=== PATIENT | female | born 1980 | race Caucasian/White ===

== ENCOUNTER 2019-03-10 14:57 | Emergency (ER) | payer MEDICAID, SELFPAY ==
[2019-03-10 14:58] VITALS: BP 165/94; PULSE 100; RESP 14; TEMP 36.6; O2SAT 99; BMI 31.8
--- NOTE | 2019-03-10 15:15 | ED.VIS.GEN ---
History of Present Illness Chief Complaint: Dental Onset: Today Narrative: Worsening right upper dental pain this morning. States broke the tooth a week ago biting a walnut. 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 Currently is not using. Ibuprofen taken 7 AM this morning. Pain radiating up to the cheeks. No fevers. Hot and cold sensitivities. No difficulty swallowing. Reports currently with insurance, dentist that she has does not take it. Prior similar symptoms: Yes Past Medical History - Allergies and Home Meds Allergies/Adverse Reactions: Allergies amoxicillin [Amoxicillin] Allergy (Verified 03/10/19 15:00) Hives Penicillins Allergy (Verified 03/10/19 15:00) Swelling Primary Care Physician: Isaías Saldana MD [Primary Care Provider] - Smoking Status: Current some day smoker Review of Systems General: Denies: Chills, Fever, Sweats Eyes: Denies: Visual changes - bilaterally, Diplopia ENT: Denies: Rhinorrhea, Sore throat Cardiovascular: Denies: Chest pain, Palpitations Respiratory: Denies: Dyspnea, Cough, Dyspnea on exertion Gastrointestinal: Denies: Abdominal pain, Nausea, Vomiting, Diarrhea, Melena, Hematochezia Genitourinary: Denies: Dysuria, Hematuria, Frequency Musculoskeletal: Denies: Back pain, Extremity Pain Skin: Denies: Rash, Wounds Neurological: Denies: Headache, Weakness, Numbness Physical Exam Vital Signs/Narrative: Vital Signs Temp Pulse Resp BP Pulse Ox 03/10/19 14:58 97.8 F 100 14 165/94 H 99 Inital Vital Signs reviewed: Yes General: Well nourished - Miles an hour today 3, Well developed, No Acute Distress Head: Normocephalic, Atraumatic Eyes: Perrl, EOMI ENT: Moist mucous membranes, No rhinorrhea, - - Dental decay tooth #7 and 8 with tenderness, no fluctuance, no erythema or bleeding. Airway patent. No trismus. Neck: Supple, Nontender Cardiovascular: Regular rate, Regular rhythm, No murmurs Respiratory: No distress, CTA bilaterally, Chest nontender Abdomen: Soft, Nontender, Nondistended, Normal bowel sounds Back: Nontender, Normal Inspection Extremities: Nontender, No edema Skin: Normal color, No rash Neurological: Alert, Oriented x3, Cranial nerves II-XII grossly intact, Normal Strength, Normal Sensation Psychological: Normal affect, Normal Mood Diagnostic/Tx/Re-eval - Medical Decision Making Patient nontoxic, vital signs stable. exam with dental caries causing pain. There is no abscess. Allergy to penicillin, will start clindamycin and Motrin 600 every 6 hours. She is given a dental list for follow-up. All questions were answered. ED Disposition - Plan for ED Patient: Disposition: Home or Assisted Living Diagnosis: Dental caries, Dentalgia Instructions: Dental Cavity, Dental Pain Prescriptions: Clindamycin [Cleocin] 450 mg PO TID #90 capsule Ibuprofen [Motrin] 600 mg PO Q6H PRN PRN #20 tablet PRN Reason: Pain Score 1-10/10 Referrals: Isaías Saldana MD [Primary Care Provider] - Additional Instructions: Call from dental list for follow up for definitive care.
[2019-03-10] MEDS: Ibuprofen 600 MG Tablet PO (15:20)
[2019-03-10] MEDS: Clindamycin HCl 150 MG Capsule 450 MG PO (15:20)
== END 2019-03-10 15:40 | disposition home or self-care (01) ==
LOC: ED 15:24
PROVIDERS: Emergency Provider Emergency Medicine; Family Provider Family Medicine; PCP Family Medicine
DX: K08.89 Other specified disorders of teeth and supporting structures (principal); K02.9 Dental caries, unspecified; F17.200 Nicotine dependence, unspecified, uncomplicated
CPT/HCPCS: 99283

== ENCOUNTER 2020-03-02 23:23 | Emergency (ER) | payer MEDICAID, SELFPAY ==
[2020-03-02 23:24] VITALS: BP 161/98; PULSE 117; RESP 15; TEMP 36.2; O2SAT 100; BMI 33.5
--- NOTE | 2020-03-02 23:39 | ED.DCSUM_ITS ---
History of Present Illness Chief Complaint: Vag Bleeding Informant: Patient Onset: Days Current Severity: Moderate Maximum Severity: Moderate Narrative: Patient presents with vaginal bleeding and believes that she has had a recent miscarriage. She states 2 days ago she started bleeding very heavy and passed large clots. Yesterday she was able to wear normal tampon but tonight had increased bleeding and states she is blood through 4 tampons in the last 4 hours. She did take a home test 2 days ago that was positive. Patient states her last several periods have been abnormal but she did have a period last month. She states she has not seen an DEPUTY CLERK OF COURT in quite some time. She does know that she has required the RhoGam shot in the past. - Past Medical History (1) Kidney stones Status: Chronic (2) Anxiety and depression Status: Chronic Past Medical History - Allergies and Home Meds Allergies/Adverse Reactions: Allergies amoxicillin [Amoxicillin] Allergy (Verified 03/02/20 23:26) Hives Penicillins Allergy (Verified 03/02/20 23:26) Swelling Primary Care Physician: Isaías Saldana MD [Primary Care Provider] - Prior records reviewed: Yes Smoking Status: Current every day smoker Review of Systems General: Denies: Chills, Fever Eyes: Denies: Visual changes - bilaterally ENT: Denies: Bilateral ear pain Cardiovascular: Denies: Chest pain Respiratory: Denies: Dyspnea, Cough Gastrointestinal: Reports: Abdominal pain. Denies: Nausea, Vomiting, Diarrhea Musculoskeletal: Denies: Extremity Pain Skin: Denies: Rash Neurological: Denies: Headache Hematologic: Denies: Easy bruising, Easy bleeding Allergy: Denies: Uticaria Physical Exam Vital Signs/Narrative: Vital Signs Temp Pulse Resp BP Pulse Ox 03/02/20 23:24 97.2 F L 117 H 15 161/98 H 100 Inital Vital Signs reviewed: Yes General: Well nourished, Well developed Head: Normocephalic ENT: Moist mucous membranes Neck: Supple Cardiovascular: Regular rate, Regular rhythm Respiratory: No distress, CTA bilaterally Abdomen: Soft, Nontender Extremities: Nontender Skin: Normal color Neurological: Alert, Oriented x3 Psychological: Normal affect Diagnostic/Tx/Re-eval Laboratory Results 03/02/20 03/02/20 03/02/20 23:53 23:53 23:53 WBC 12.9 H RBC 3.61 L Hgb 10.3 L Hct 32.2 L MCV 89.2 MCH 28.5 MCHC 32.0 RDW Std Deviation 38.3 RDW Coeff of Bria 11.9 Plt Count 298 MPV 9.2 Immature Gran % (Auto) 0.900 Neut % (Auto) 71.8 H Lymph % (Auto) 18.4 L [place] % (Auto) 7.2 Eos % (Auto) 1.3 Baso % (Auto) 0.4 Absolute Neuts (auto) 9.3 H Absolute Lymphs (auto) 2.38 Nucleated RBC % 0 Sodium Potassium Chloride Carbon Dioxide Anion Gap BUN Creatinine Estim Creat Clear Calc Est GFR (MDRD) Af Amer Est GFR (MDRD) Non-Af BUN/Creatinine Ratio Glucose Calcium HCG, Quant 410 H Blood Type A NEGATIVE 03/02/20 23:53 WBC RBC Hgb Hct MCV MCH MCHC RDW Std Deviation RDW Coeff of Bria Plt Count MPV Immature Gran % (Auto) Neut % (Auto) Lymph % (Auto) [place] % (Auto) Eos % (Auto) Baso % (Auto) Absolute Neuts (auto) Absolute Lymphs (auto) Nucleated RBC % Sodium 139 Potassium 3.5 Chloride 105 Carbon Dioxide 28.0 Anion Gap 6 BUN 11 Creatinine 0.64 Estim Creat Clear Calc 98.59 Est GFR (MDRD) Af Amer 134 Est GFR (MDRD) Non-Af 110 BUN/Creatinine Ratio 17.2 Glucose 103 Calcium 8.5 HCG, Quant Blood Type - Medical Decision Making Exam was performed at bedside. Patient had large clots in the vaginal vault with heavy bleeding. These were removed with ring forceps. Following this bimanual examination revealed cervix to be fingertip open. Following extraction of clots patient's bleeding has significantly reduced. She has been hemodynamically stable in the emergency department. She did receive a dose of RhoGam and will be instructed to follow-up with Dr. Granado, on-call for no doc DEPUTY CLERK OF COURT. She is given return instructions as well. ED Disposition - Plan for ED Patient: Disposition: Home or Assisted Living Diagnosis: Miscarriage Instructions: ED Possible Miscarriage Threatened Referrals: Zahida Granado MD [STAFF PHYSICIAN] - As soon as possible
[2020-03-02] MEDS: 0.9% Normal Saline 1,000 ML 1000 ML IV (23:59)
[2020-03-03 00:01] LABS: Absolute Lymphocyte Count 2.38 X10^3/uL (0.83-4.51); Absolute Neutrophil Count 9.3 X10^3/uL (2.0-7.7); Basophil# 0.05 X10^3/uL; Basophil% 0.4 % (0-1); Eosinophil# 0.17 X10^3/uL; Eosinophils% 1.3 % (0-5); Hematocrit 32.2 % (37-47); Hemoglobin 10.3 g/dL (12.0-15.0); Lymphocyte # 2.38 X10^3/ul (4.0); Lymphocyte % 18.4 % (19-41); Mean Corpuscular Hgb 28.5 pg (27.0-32.0); Mean Corpuscular Volume 89.2 fL (81-99); Mean Platelet Vol. 9.2 fl (6.2-12.0); Monocyte# 0.93 X10^3/uL; Monocyte% 7.2 % (0-10); NRBC Flagged by Analyzer 0 % (0-5); Neutrophil # 9.26 X10^3/uL (2.7-7.7); Neutrophil % 71.8 % (47-70); Platelet Count 298 K/mm3 (150-450); RBC Distribution Width CV 11.9 % (11.6-14.6); RBC Distribution Width SD 38.3 fl (35.1-43.9); Red Blood Count 3.61 M/mm3 (4.2-5.4); White Blood Count 12.9 K/mm3 (4.4-11.0)
[2020-03-03 00:19] LABS: hCG Titer Quant., Serum 410 mIU/mL (1-3)
[2020-03-03 00:21] LABS: Anion Gap 6 (5-15); BUN 11 mg/dL (7-18); BUN/Creat Ratio 17.2 RATIO (10-20); Calcium,Total 8.5 mg/dL (8.5-10.1); Chloride 105 mmol/L (98-107); Creatinine, Serum 0.64 mg/dL (0.55-1.02); EST Glomerular Filtration Rate 110 mL/min (>60); Est Glom Filt Rate - Afr Amer 134 mL/min (>60); Estimated Creatinine Clearance 98.59 ml/min; Glucose 103 mg/dL (74-106); Potassium 3.5 mmol/L (3.5-5.1); Sodium Level 139 mmol/L (136-145)
[2020-03-03 02:54] VITALS: BP 116/79; PULSE 97; RESP 26; O2SAT 98
== END 2020-03-03 02:54 | disposition home or self-care (01) ==
PROVIDERS: Emergency Provider Emergency Medicine; PCP Family Medicine
DX: O03.9 Complete or unspecified spontaneous abortion without complication (principal); F17.200 Nicotine dependence, unspecified, uncomplicated
CPT/HCPCS: 80048; 84702; 85025; 86900; 86901; 90384; 96360; 96372; 99285; J7030; J2790

== ENCOUNTER 2020-03-07 18:00 | Emergency (ER) | payer MEDICAID, SELFPAY ==
[2020-03-07 18:01] VITALS: BP 155/95; PULSE 111; RESP 18; TEMP 36.3; O2SAT 99; BMI 31.8
--- NOTE | 2020-03-07 18:31 | CT_ITS ---
STUDY: CTA CHEST REASON FOR EXAM: Female, 39 years old. MISCARRIAGE 4 DAYS AGO, CLOTS REMOVED IN ED, TODAY BACK PAIN RIGHT SIDE, SOB, PAIN WITH INHALATION RADIATION DOSAGE (If Supplied By Facility): CTDIvol = ( 15.81 ) mGy, DLP = ( 478.80 ) mGycm TECHNIQUE: The examination was performed with the intravenous administration of IV 100mL Isovue-370. Post-processing of the angiographic images was performed, with multiplanar reformation and 3D reconstruction. Individualized dose optimization techniques were used for this CT. COMPARISON: None. FINDINGS: The heart and pericardium are normal. The aorta is normal in caliber. No aneurysm or dissection. There is no mediastinal mass or adenopathy. There is no hilar or axillary adenopathy. There is no evidence of pulmonary embolus. Small right pleural effusion. Airspace disease is noted in the right upper and right lower lobes. In the left lung is clear. Visualized abdomen is unremarkable. There is no osseous abnormality. CT/CTA Chest W/WO Contrast IMPRESSION: 1. No demonstrated pulmonary embolism or arterial dissection. 2. Right upper and lower lobe pneumonia. 3. Small right pleural effusion. Electronically Signed: Rebekah Boateng MD at 19:58 EDT Tel , Service support ,
--- NOTE | 2020-03-07 18:31 | EKG12_ITS ---
Test Reason : DYSRYTHMIA Blood Pressure : / mmHG Vent. Rate : 096 BPM Atrial Rate : 096 BPM P-R Int : 128 ms QRS Dur : 092 ms QT Int : 350 ms P-R-T Axes : 040 076 048 degrees QTc Int : 442 ms Normal sinus rhythm Normal ECG Confirmed by IRVING VANCE, PHILLY ([id number]), editor trade journal CHRISTY SWEENEY ([id number]) on 03/09/2020 10:30:17 AM Referred By: QUINTEN Confirmed By:PHILLY VILLATORO MD
[2020-03-07] MEDS: Aspirin 81 MG TAB.CHEW 324 MG PO (18:43)
--- NOTE | 2020-03-07 19:17 | ED.DCSUM_ITS ---
History of Present Illness Chief Complaint: Back Informant: Patient Narrative: 39-year-old female presenting with acute onset right upper back pain and shortness of breath which occurred about 3 PM when she woke up from a nap. She states it feels like a muscle spasm however she has not done anything to injure herself. Patient was recently seen for miscarriage in the ED. She states that her abdomen is not hurting. He has minimal vaginal clots. He has no pelvic pain. She states that the pain is worse with deep inspiration. She denies any other medical history. - Past Medical History (1) Anxiety and depression Status: Chronic (2) Kidney stones Status: Chronic Past Medical History - Allergies and Home Meds Allergies/Adverse Reactions: Allergies amoxicillin [Amoxicillin] Allergy (Verified 03/02/20 23:26) Hives Penicillins Allergy (Verified 03/02/20 23:26) Swelling Primary Care Physician: Isaías Saldana MD [Primary Care Provider] - Past Medical History: - - Reviewed in problem list Surgical History: noncontributory Lives: With Family Smoking Status: Current every day smoker Alcohol: None Drugs: None Review of Systems General: Denies: Chills, Fever, Sweats Eyes: Denies: Visual changes - bilaterally, Diplopia ENT: Denies: Rhinorrhea, Sore throat Cardiovascular: Reports: Chest pain - Right posterior rib pain, Heart racing Respiratory: Reports: Dyspnea, Dyspnea on exertion Gastrointestinal: Denies: Abdominal pain, Nausea, Vomiting Genitourinary: Reports: Dysuria, Hematuria Musculoskeletal: Denies: Myalgias, Arthralgias Skin: Denies: Rash, Abscess Physical Exam Vital Signs/Narrative: Vital Signs Temp Pulse Resp BP Pulse Ox 03/07/20 18:01 97.4 F L 111 H 18 155/95 H 99 General: Well nourished, No Acute Distress Head: Normocephalic, Atraumatic Eyes: Perrl, EOMI ENT: Moist mucous membranes, No rhinorrhea Cardiovascular: Regular rhythm, Tachycardia Respiratory: No distress, CTA bilaterally, Chest nontender. Negative for: Chest tenderness Abdomen: Soft, Nontender, Nondistended Extremities: Nontender, No edema. Negative for: Calf Tenderness Skin: Normal color, No rash Neurological: Alert, Oriented x3 Psychological: Normal affect, Normal Mood Diagnostic/Tx/Re-eval Clinical Impression(s) from Imaging Studies Chest CTA 03/07/20 18:31 IMPRESSION: 1. No demonstrated pulmonary embolism or arterial dissection. 2. Right upper and lower lobe pneumonia. 3. Small right pleural effusion. Electronically Signed: Rebekah Boateng MD at 19:58 EDT Tel , Service support , Laboratory Data 03/07/20 03/07/20 19:00 19:00 WBC 20.1 H RBC 2.98 L Hgb 8.4 L Hct 26.1 L MCV 87.6 MCH 28.2 MCHC 32.2 RDW Std Deviation 38.7 RDW Coeff of Bria 12.0 Plt Count 406 MPV 9.0 Immature Gran % (Auto) 0.600 Neut % (Auto) 86.2 H Lymph % (Auto) 6.8 L [place] % (Auto) 5.5 Eos % (Auto) 0.6 Baso % (Auto) 0.3 Absolute Neuts (auto) 17.3 H Absolute Lymphs (auto) 1.37 Nucleated RBC % 0 Sodium 139 Potassium 3.6 Chloride 107 Carbon Dioxide 28.0 Anion Gap 4 L BUN 17 Creatinine 0.67 Estim Creat Clear Calc 94.18 Est GFR (MDRD) Af Amer 126 Est GFR (MDRD) Non-Af 105 BUN/Creatinine Ratio 25.4 H Glucose 119 H Calcium 8.5 Troponin I < 0.015 - Rhythm Strip Rhythm Strip: Sinus Rhythm Rate: 128 - EKG Initial EKG Interpretation: Sinus Rhythm, No Acute Injury Pattern - Medical Decision Making 39-year-old female presenting with acute onset right-sided upper back pain which started after she woke up from her nap at around 3 today. She states it feels like a muscle spasm. He states he might have had a couple of mild coughs earlier. She is not had a fever. She does states that she feels short of breath sometimes but it usually when the muscle spasming in her back. She has no cardiac history. Given that she recently miscarried I did have concern for PE. Patient had cardiac work-up which showed normal EKG sinus rhythm without ischemic changes. Troponin is negative. Lab work is remarkable for a leukocytosis of 20,000 which was previously 12,000 on her last visit. On reevaluation of the patient's vital signs she was a little tachycardic on arrival however her EKG shows ventricular rate of 96. After her CTA was performed which identified upper and lower lobe pneumonia as well as a right lower lobe pleural effusion which is small she was breathing at about 30 respirations per minute. While discussing her findings I did have her sit and relax for 30 seconds and her respiratory rate dropped to 15. Her heart rate dropped to 95. She feels that she only has these abnormalities in her vitals because she has a muscle spasm in her back. When she relaxes her vital signs are normal. I did discuss with the patient that it might be better for her to be admitted for IV antibiotics and monitoring however she states she absolutely cannot stay because she has to take care of her children. I discussed this with Dr. Judd who is on-call for her PCP Isaías Saldana in order to arrange close follow-up. After discussion we determined he would place the patient on doxycycline. We will send a respiratory panel as well as a Covid swab. Patient will quarantine at home. I also discussed with her that if she gets severe shortness of breath or chest pain or starts becoming more ill that she should return immediately to the emergency room. She acknowledged understanding of this. She requested a muscle relaxer for the spasming in her back and she was discharged home with doxycycline and cyclobenzaprine. Impression: 1. Right upper and lower lobe pneumonia 2. Right pleural effusion 3. Leukocytosis ED Disposition - Plan for ED Patient: Disposition: Home or Assisted Living Instructions: Treating Pneumonia Prescriptions: Cyclobenzaprine HCl 10 mg PO TID PRN PRN #21 tab PRN Reason: pain Prescription Printed Doxycycline 100 mg PO BID #20 cap Prescription Printed Referrals: Isaías Saldana MD [Primary Care Provider] -
[2020-03-07 19:19] LABS: Absolute Lymphocyte Count 1.37 X10^3/uL (0.83-4.51); Absolute Neutrophil Count 17.3 X10^3/uL (2.0-7.7); Basophil# 0.06 X10^3/uL; Basophil% 0.3 % (0-1); Eosinophil# 0.12 X10^3/uL; Eosinophils% 0.6 % (0-5); Hematocrit 26.1 % (37-47); Hemoglobin 8.4 g/dL (12.0-15.0); Lymphocyte # 1.37 X10^3/ul (4.0); Lymphocyte % 6.8 % (19-41); Mean Corp Hgb Conc 32.2 g/dL (32-36); Mean Corpuscular Hgb 28.2 pg (27.0-32.0); Mean Corpuscular Volume 87.6 fL (81-99); Monocyte% 5.5 % (0-10); NRBC Flagged by Analyzer 0 % (0-5); Neutrophil # 17.28 X10^3/uL (2.7-7.7); Neutrophil % 86.2 % (47-70); Platelet Count 406 K/mm3 (150-450); RBC Distribution Width SD 38.7 fl (35.1-43.9); Red Blood Count 2.98 M/mm3 (4.2-5.4); White Blood Count 20.1 K/mm3 (4.4-11.0)
[2020-03-07] MEDS: Ondansetron 4 MG/2 ML Vial IV (19:38)
[2020-03-07 19:39] LABS: Anion Gap 4 (5-15); BUN 17 mg/dL (7-18); BUN/Creat Ratio 25.4 RATIO (10-20); Calcium,Total 8.5 mg/dL (8.5-10.1); Chloride 107 mmol/L (98-107); Creatinine, Serum 0.67 mg/dL (0.55-1.02); EST Glomerular Filtration Rate 105 mL/min (>60); Est Glom Filt Rate - Afr Amer 126 mL/min (>60); Estimated Creatinine Clearance 94.18 ml/min; Glucose 119 mg/dL (74-106); Potassium 3.6 mmol/L (3.5-5.1); Sodium Level 139 mmol/L (136-145)
[2020-03-07] MEDS: Morphine 4 MG/ML Syringe IV (19:39)
[2020-03-07 19:59] VITALS: BP 119/70; PULSE 94; RESP 30; O2SAT 99
[2020-03-07] MEDS: Doxycycline 100 MG CAPSULE PO (20:53)
[2020-03-07 21:03] VITALS: BP 118/56; PULSE 102; RESP 31; O2SAT 99
[2020-03-07] MEDS: Orphenadrine 100 MG Tablet PO (21:06)
== END 2020-03-07 21:07 | disposition home or self-care (01) ==
PROVIDERS: Emergency Provider Student in an Organized Health Care Education/Training Program; PCP Family Medicine
DX: J18.9 Pneumonia, unspecified organism (principal); J90 Pleural effusion, not elsewhere classified; D72.829 Elevated white blood cell count, unspecified
CPT/HCPCS: 71275; 80048; 84484; 85025; 87633; 87635; 93005; 96374; 96375; 99284; Q9967; A4216; J2405; U0003

== ENCOUNTER 2020-03-08 11:36 | Inpatient (IN) | payer MEDICAID, SELFPAY ==
[2020-03-07 18:01] VITALS: BMI 31.8
[2020-03-08] VITALS (9 sets, daily range): BP systolic 105–166; BP diastolic 39–72; PULSE 100–127; RESP 18–26; TEMP 36.8–37.7; O2SAT 95–99; BMI 31.8; BMI 33.6; BMI 33.5
--- NOTE | 2020-03-08 12:40 | RAD_ITS ---
STUDY: X-RAY CHEST REASON FOR EXAM: Female, 39 years old. BACK PAIN, INCREASING PAIN -- DIAGNOSED WITH PNEUMONIA YESTERDAY TECHNIQUE: Single AP portable view of the chest. COMPARISON: Comparison is made with prior examination dated 05/24/2015. FINDINGS: EKG electrodes are seen. Patchy bibasilar infiltrates more prominent on the right side with blunting of the right costophrenic angle. Normal size heart. Normal mediastinum and duke. Normal visualized pulmonary arteries. Normal visualized aortic arch and descending thoracic aorta. Normal visualized thoracic spine. Normal visualized ribs, clavicles, and shoulders. There is no demonstrated abnormality of the visualized soft tissue structures of the upper abdomen. RAD/Chest 1 View (Portable) IMPRESSION: Patchy bibasilar infiltrates more prominent on the right side. There is blunting of the right costophrenic angle. Electronically Signed: Crow Mane, at 13:52 EDT , Service support ,
--- NOTE | 2020-03-08 12:40 | EKG12_ITS ---
Test Reason : Blood Pressure : / mmHG Vent. Rate : 107 BPM Atrial Rate : 107 BPM P-R Int : 126 ms QRS Dur : 094 ms QT Int : 328 ms P-R-T Axes : 034 080 045 degrees QTc Int : 437 ms Sinus tachycardia Otherwise normal ECG Confirmed by IRVING VANCE, PHILLY ([id number]), desk editor CHRISTY SWEENEY ([id number]) on 03/10/2020 1:51:26 PM Referred By: GUI/ANAHY Confirmed By:PHILLY VILLATORO MD
[2020-03-08 12:47] LABS: Absolute Lymphocyte Count 1.51 X10^3/uL (0.83-4.51); Absolute Neutrophil Count 20.3 X10^3/uL (2.0-7.7); Basophil# 0.07 X10^3/uL; Basophil% 0.3 % (0-1); Eosinophil# 0.15 X10^3/uL; Eosinophils% 0.6 % (0-5); Hemoglobin 8.3 g/dL (12.0-15.0); Lymphocyte # 1.51 X10^3/ul (4.0); Lymphocyte % 6.5 % (19-41); Mean Corp Hgb Conc 31.9 g/dL (32-36); Mean Corpuscular Hgb 28.5 pg (27.0-32.0); Mean Corpuscular Volume 89.3 fL (81-99); Mean Platelet Vol. 8.9 fl (6.2-12.0); Monocyte# 1.08 X10^3/uL; Monocyte% 4.6 % (0-10); NRBC Flagged by Analyzer 0 % (0-5); Neutrophil # 20.31 X10^3/uL (2.7-7.7); Neutrophil % 86.9 % (47-70); POSITIVE DIFFERENTIAL YES; Platelet Count 402 K/mm3 (150-450); RBC Distribution Width CV 12.1 % (11.6-14.6); RBC Distribution Width SD 39.1 fl (35.1-43.9); Red Blood Count 2.91 M/mm3 (4.2-5.4); White Blood Count 23.4 K/mm3 (4.4-11.0)
[2020-03-08 12:48] LABS: Differential Indicated SCAN CRITERIA MET
--- NOTE | 2020-03-08 12:53 | ED.DCSUM_ITS ---
History of Present Illness Chief Complaint: Back Informant: Patient Onset: Days Context: Gradual Onset Timing: Continuous Narrative: Patient is a 39-year-old female with history of anxiety and recent diagnosis of by lobar pneumonia presenting with worsening back pain. Patient was seen in the ER yesterday where she was having back spasms. She is ultimately found to have multilobar infiltrates and a small pleural effusion. She was diagnosed with pneumonia as she also has significant leukocytosis. She was offered but declined stating that she had to take care of her children at home. She was discharged home on antibiotics, doxycycline, and Flexeril. She last had the Flexeril at 8 AM. She states she is having worsening back pain and the spasms are just not letting up. Because of that she feels like she cannot breathe. She notes it is making her anxiety significantly worse. Patient states that she get her pain under control and the spasm under control she would like to be discharged home still. She continues have a mild cough. Patient negative CTA study yesterday. She was tested for Covid at that time which is still pending. She denies any swelling of her legs. She has some mild abdominal pain but states it is because she feels like her body spasming all over. Past Medical History - Allergies and Home Meds Allergies/Adverse Reactions: Allergies amoxicillin [Amoxicillin] Allergy (Verified 03/08/20 11:41) Hives Penicillins Allergy (Verified 03/08/20 11:41) Swelling Past Medical History: - - anxiety Surgical History: noncontributory Lives: With Family Smoking Status: Current every day smoker - Family History Maternal Family History: Reports: No pertinent history Paternal Family History: Reports: No pertinent history Review of Systems General: Reports: Malaise. Denies: Chills, Fever, Sweats Eyes: Denies: Visual changes - bilaterally, Diplopia ENT: Denies: Rhinorrhea, Sore throat Cardiovascular: Reports: Chest pain. Denies: Palpitations Respiratory: Reports: Dyspnea, Cough. Denies: Dyspnea on exertion Gastrointestinal: Reports: Abdominal pain. Denies: Nausea, Vomiting, Diarrhea, Melena, Hematochezia Genitourinary: Denies: Dysuria, Hematuria, Frequency Musculoskeletal: Reports: Myalgias, Back pain. Denies: Extremity Pain Skin: Denies: Rash, Wounds Neurological: Denies: Headache, Weakness, Numbness Psych: Reports: Anxiety Physical Exam Vital Signs/Narrative: Vital Signs Temp Pulse Resp BP Pulse Ox 03/08/20 12:24 98.2 F 103 H 26 H 166/71 H 98 03/08/20 11:38 98.2 F 127 H 20 H 135/39 H 95 Inital Vital Signs reviewed: Yes General: Well nourished, Well developed, Acute Distress - very anxious and tearful Head: Normocephalic, Atraumatic Eyes: Perrl, EOMI ENT: Moist mucous membranes, No rhinorrhea Neck: Supple, Nontender, No JVD Cardiovascular: Regular rhythm, No murmurs, Tachycardia Respiratory: CTA bilaterally, Chest nontender, - - Patient is tachypneic but I suspect it is more from her anxiety, does calm down well I am speaking with her Abdomen: Soft, Nontender, Nondistended, Normal bowel sounds. Negative for: Guarding, Rebound tenderness Back: Normal Inspection, - - Tenderness palpation of the right lower thoracic paraspinal area. Negative for: Spinal tenderness Extremities: Nontender, No edema Skin: Normal color, No rash Neurological: Alert, Oriented x3, Cranial nerves II-XII grossly intact, Normal Strength, Normal Sensation Psychological: Normal Mood, Tearful, Agitated Diagnostic/Tx/Re-eval Chest X-Ray - ED: 1 View, Read by ED Physician, Read by Radiologist, Right Infiltrate, Left Infiltrate, Right Effusion Clinical Impression(s) from Imaging Studies Chest X-Ray 03/08/20 12:40 IMPRESSION: Patchy bibasilar infiltrates more prominent on the right side. There is blunting of the right costophrenic angle. Electronically Signed: Crow Mane, at 13:52 EDT , Service support , Laboratory Data 03/08/20 03/08/20 03/08/20 12:20 12:20 12:20 WBC 23.4 H RBC 2.91 L Hgb 8.3 L Hct 26.0 L MCV 89.3 MCH 28.5 MCHC 31.9 L RDW Std Deviation 39.1 RDW Coeff of Bria 12.1 Plt Count 402 MPV 8.9 Immature Gran % (Auto) 1.100 H Neut % (Auto) 86.9 H Lymph % (Auto) 6.5 L [place] % (Auto) 4.6 Eos % (Auto) 0.6 Baso % (Auto) 0.3 Absolute Neuts (auto) 20.3 H Absolute Lymphs (auto) 1.51 Nucleated RBC % 0 Differential Comment SCANNED Platelet Estimate ADEQUATE Hypochromasia 1+ Sodium 138 Potassium 3.6 Chloride 104 Carbon Dioxide 27.0 Anion Gap 7 BUN 14 Creatinine 0.60 Estim Creat Clear Calc 105.16 Est GFR (MDRD) Af Amer 143 Est GFR (MDRD) Non-Af 118 BUN/Creatinine Ratio 23.2 H Glucose 113 H Lactic Acid 1.4 Calcium 8.6 Total Creatine Kinase Troponin I 0.038 03/08/20 12:20 WBC RBC Hgb Hct MCV MCH MCHC RDW Std Deviation RDW Coeff of Bria Plt Count MPV Immature Gran % (Auto) Neut % (Auto) Lymph % (Auto) [place] % (Auto) Eos % (Auto) Baso % (Auto) Absolute Neuts (auto) Absolute Lymphs (auto) Nucleated RBC % Differential Comment Platelet Estimate Hypochromasia Sodium Potassium Chloride Carbon Dioxide Anion Gap BUN Creatinine Estim Creat Clear Calc Est GFR (MDRD) Af Amer Est GFR (MDRD) Non-Af BUN/Creatinine Ratio Glucose Lactic Acid Calcium Total Creatine Kinase 45 Troponin I - Rhythm Strip Rhythm Strip: Sinus Tach Rate: 107 Ectopy: None - EKG Initial EKG Interpretation: Sinus Tachycardia, - - Tachycardia at a rate of 107 Normal intervals Normal axis Normal ST segments Tachycardia compared to prior EKG on 05/24/2015 - Medical Decision Making Patient is evaluated for worsening shortness of breath and pain. Patient was seen in the ER for back pain and diagnosed with multilobar pneumonia yesterday. Her Covid test is still pending. Patient was offered admission at that time given her pneumonia, tachycardia and pain however declined saying she did take care of her children at home. Patient came back today because she is having worsening pain and shortness of breath. X-ray repeated today which shows patchy bilateral infiltrates as well as a right pleural effusion. Patient is initially given 1 mg of IV Ativan for muscle spasms and anxiety. I suspect her pain is actually more pleuritic in nature given her acute lung disease. This does seem to improve her symptoms slightly but she remains tachycardic. She is given IV fluids and IV Toradol as well. Her white count is now 23 where it was 20 yesterday. Her lactate is normal. Patient does meet criteria for sepsis but not severe sepsis or septic shock. Blood cultures are obtained even though patient has had antibiotics prior to arrival. Attempted to ambulate the patient as she initially states that she did not want to be admitted to the hospital and wanted to go home if possible. Patient is not hypoxic with ambulation but does become significantly tachycardic and tachypneic and feels nauseous and lightheaded when she tries to ambulate. Patient is now amenable to admission. Patient does have a stable anemia. Patient started on IV antibiotics, Rocephin and azithromycin and a rapid Covid is obtained. Patient will be admitted med icine service. She does not require admission. Location of admission is pending Covid results which will be followed by oncoming physician. Covid 19 test is negative. Patient admitted to medicine service. ED Disposition - Plan for ED Patient: Disposition: Acute Care Hospital [facility] Diagnosis: Bilateral pneumonia, Anemia, Chest pain, pleuritic
[2020-03-08 13:00] LABS: Anion Gap 7 (5-15); BUN 14 mg/dL (7-18); BUN/Creat Ratio 23.2 RATIO (10-20); Calcium,Total 8.6 mg/dL (8.5-10.1); Chloride 104 mmol/L (98-107); EST Glomerular Filtration Rate 118 mL/min (>60); Est Glom Filt Rate - Afr Amer 143 mL/min (>60); Estimated Creatinine Clearance 105.16 ml/min; Glucose 113 mg/dL (74-106); Potassium 3.6 mmol/L (3.5-5.1); Sodium Level 138 mmol/L (136-145)
[2020-03-08 13:01] LABS: Lactic Acid 1.4 mmol/L (0.4-1.9)
[2020-03-08] MEDS: Ketorolac 15 MG/ML Vial IV (13:09)
[2020-03-08] MEDS: LORazepam 2 MG/ML Syringe 1 MG IV (13:09)
[2020-03-08 13:16] LABS: Differential Comment SCANNED; Hypochromasia 1+; Platelet Estimate ADEQUATE (ADEQ)
[2020-03-08 13:24] LABS: CPK Total, Creatine Kinase 45 U/L (26-192)
[2020-03-08] MEDS: 0.9% Normal Saline 1,000 ML 999 ML IV (16:51)
[2020-03-08] MEDS: Morphine 4 MG/ML Syringe IV ×2 (16:52→21:12)
[2020-03-08] MEDS: Ceftriaxone 1 GM/50 ML BAG IV (17:19)
--- NOTE | 2020-03-08 17:39 | PCM.HP.STD ---
Problem List (1) Community acquired pneumonia Status: Acute (2) Kidney stones Status: Chronic (3) Anxiety and depression Status: Chronic (4) Anemia Status: Acute History of Present Illness Date of Admission: 03/08/20 Chief Complaint: Right back pain, shortness of breath. The patient is a 39 year old F with past medical history as mentioned above presented to the emergency room because of right upper back pain or shortness of breath. Her symptoms started 2 days ago with gradually increasing right upper back pain, sharp pain, 8 out of 10 in severity, extends around right lateral chest to go to the right side of her anterior chest, aggravated by taking a deep breath or coughing, associated with mild shortness of breath as well as dry cough. She denied fever or chills. Patient presented to the emergency room yesterday, had CTA chest done and she was found to have pneumonia and she elected to go home on oral antibiotics. She came back today with increasing right upper back pain as well as shortness of breath. Also, she complains of vaginal bleeding. She had miscarriage 4 days ago. In the emergency department, patient was afebrile, tachycardic, blood pressure stable, was tachypneic, pulse ox was 95% on room air. Her routine blood work was remarkable for significant leukocytosis, hemoglobin of 8.3 g/dL. BMP was unremarkable. EKG revealed sinus tachycardia, no acute changes. Troponin was 0.038. Chest x-ray revealed right basilar infiltrate with small right pleural effusion. COVID-19 PCR is negative. She is being admitted for acute right lower lobe community-acquired pneumonia and anemia. Past Medical History Past Medical History (Chronic Problems): Chronic Problems (Last Updated 03/08/20 @ 20:[address] Shadia Juarez MD) Kidney stones (Chronic) Anxiety and depression (Chronic) Medical History: Medical History (Last Updated 03/08/20 @ 20:[address] 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 Denies: Chest Pressure, Chest Tightness, Heaviness, Light Headedness, Palpitations, Syncope Respiratory: Reports: Cough, Pleuritic Pain, Shortness of Breath. Denies: Sputum production, Wheezing Gastrointestinal: Denies: Abdominal Pain, Constipation, Diarrhea, Nausea, Vomiting Genitourinary: Denies: Dysuria, Frequency, Hematuria Musculoskeletal: Denies: Arm Pain, Back Pain, Foot Pain Skin: Denies: Dryness, Rash Neurological: Denies: Balance problems, Blurred vision, Double vision, Change in Speech, Confusion Psychiatric: Denies: Anxiety, Depression Endocrine: Denies: Change in Body Habitus, Polydipsia, Polyuria VTE Information - Inpt Only VTE Present on Admission: No VTE Mechan Device Prophylaxis: None VTE Pharm Prophylaxis ordered?: Yes Patient Problems: Active and Suspected Problems (Last Updated 03/08/20 @ 20:[address] Shadia Juarez MD) Anemia (Acute) Community acquired pneumonia (Acute) - Physical Exam Vitals/I&O's: Vital Signs Temp Pulse Resp BP Pulse Ox 98.9 F 109 H 26 H 106/65 98 03/08/20 16:54 03/08/20 16:54 03/08/20 16:54 03/08/20 16:54 03/08/20 16:54 Oxygen Delivery Method Room Air Weight: 180 lb Body Mass Index (BMI) 31.8 General: Alert, Oriented x3, Cooperative, No apparent distress HEENT: Atraumatic, PERRLA, EOMI, Normocephalic Oral: Moist Mucosa, No Gingival or Mucosal Lesions/ Ulcerations Neck: Supple, No JVD, Negative Carotid Bruits, Trachea Midline, Thyroid Normal Size and Texture Lungs: No rhonchi, No wheeze, Diminished, Rales, - - Decreased breath sounds in the right base, coarse crackles. Cardiovascular: Regular rate, Regular Rhythm, Normal S1, Normal S2, PMI Normal, Tachycardic Abdomen: Bowel Sounds Present, Soft, Non Tender, Non-Distended, No Hepato-splenomegaly Extremities: No clubbing, No cyanosis, No edema Skin: No rashes, No breakdown Lymphatic: No Cervical, Supraclavicular, or Inguinal Adenopathy Neurological: Cranial nerves II-XII grossly intact, Motor Exam 5/5 strength throughout Psych/Mental Status: Normal Affect, Appropriate, Alert and oriented to time, place, person, mood and affect Laboratory Results 03/08/20 12:20: WBC 23.4 H, RBC 2.91 L, Hgb 8.3 L, Hct 26.0 L, MCV 89.3, MCH 28.5, MCHC 31.9 L, RDW Std Deviation 39.1, RDW Coeff of Bria 12.1, Plt Count 402, MPV 8.9, Immature Gran % (Auto) 1.100 H, Neut % (Auto) 86.9 H, Lymph % (Auto) 6.5 L, [place] % (Auto) 4.6, Eos % (Auto) 0.6, Baso % (Auto) 0.3, Absolute Neuts (auto) 20.3 H, Absolute Lymphs (auto) 1.51, Nucleated RBC % 0, Differential Comment SCANNED, Platelet Estimate ADEQUATE, Hypochromasia 1+ 03/08/20 12:20: Sodium 138, Potassium 3.6, Chloride 104, Carbon Dioxide 27.0, Anion Gap 7, BUN 14, Creatinine 0.60, Estim Creat Clear Calc 105.16, Est GFR (MDRD) Af Amer 143, Est GFR (MDRD) Non-Af 118, BUN/Creatinine Ratio 23.2 H, Glucose 113 H, Calcium 8.6, Troponin I 0.038 03/08/20 12:20: Lactic Acid 1.4 03/08/20 12:20: Total Creatine Kinase 45 Clinical Impression(s) from Imaging Studies Chest X-Ray 03/08/20 12:40 IMPRESSION: Patchy bibasilar infiltrates more prominent on the right side. There is blunting of the right costophrenic angle. Electronically Signed: Crow Mane, at 13:52 EDT , Service support , Assessment/Plan All Active Problems (Last Updated 03/08/20 @ 20:[address] Shadia Juarez MD) Anemia (Acute) Community acquired pneumonia (Acute) This is a 39 years old female patient presented to the emergency room because of pleuritic right upper back pain with shortness of breath, found to have right lower lobe infiltrate and she is being admitted for pneumonia, COVID-19 PCR is pending. #1 acute right lower lobe community-acquired pneumonia/SIRS: CTA chest was done yesterday reviewed, showed no PE, revealed right lower and upper lobe pneumonia as well as small right pleural effusion. WBC went up to 22,000 today, it was 20,000 yesterday. Lactic acid was normal. COVID-19 PCR is negative. Plan: Admit to [facility] floor pending COVID-19 PCR, blood culture, pneumococcal and Legionella antigen, start IV Toradol every 8 hours for pleuritic chest pain, Tylenol as needed, start IV Rocephin and Zithromax, albuterol inhaler as needed, IV fluids, repeat CBC and BMP tomorrow morning. #2 anemia: Patient is having active vaginal bleeding. She had miscarriage 4 days ago. Plan: Type and crossmatch 1 unit of packed RBCs, H&H every 8 hours, transfuse if hemoglobin less than 8 g/dL, pelvic ultrasound, serum hCG, RESERVOIR ENGINEERING CONSULTANT consult, check serum iron, TIBC, serum ferritin, repeat CBC tomorrow morning. #3 anxiety/depression: Currently, she is not on medications. Stable, no acute issues. #4 DVT prophylaxis: Subcu Lovenox. This note was generated with Planwiseation software. It may contain incorrect words, spelling, and punctuation that were not noted in checking the note before signing. Inpatient E&M: 21671 Init Hosp L3
--- NOTE | 2020-03-08 18:10 | NURSING ---
MED SURG KEITH SHI
--- NOTE | 2020-03-08 20:35 | CON.PCM_ITS ---
Reason for Consult Date of Consultation: 03/08/20 History of Present Illness: The patient is a 39 year old F presents with increasing chest pain or shortness of breath, fever and wheezing. She is evaluated in the emergency room and diagnosed with pneumonia. Upon evaluation she states she had a recent positive test and spontaneous miscarriage. Patient had positive test several days ago and was only 4 to 5 weeks when she began bleeding and passing clots, which has now slowed down in the last day and a half to only a pad every few hours. She has seen [facility] in the past and has not been established with an SENIOR SOFTWARE TESTER for years. Past Medical History Past Medical History (Chronic Problems): Chronic Problems Kidney stones (Chronic) Anxiety and depression (Chronic) Allergies amoxicillin [Amoxicillin] Allergy (Verified 03/08/20 11:41) Hives Penicillins Allergy (Verified 03/08/20 11:41) Swelling Home Medications: Ambulatory Orders Medication Instructions Recorded Cyclobenzaprine HCl 10 mg PO TID PRN PRN 03/08/20 Doxycycline 100 mg PO BID 03/08/20 Surgical History: no surgical history Psychiatric History: Anxiety, Depression OBSTETRICS GYNECOLOGY PHYSICIAN History: No pertinent OBSTETRICS GYNECOLOGY PHYSICIAN history Lives: With Family Smoking Status: Current every day smoker Tobacco Use: Cigarettes Alcohol: None Drugs: None - *Family History Maternal History Items: No pertinent history Paternal History Items: No pertinent history Review of Systems Constitutional: Reports: Chills, Fever Eyes: Denies: Blurred vision HEENT: Reports: Head Aches. Denies: Visual Changes Cardiovascular: Reports: Chest Pain, Chest Pressure, Chest Tightness, Palpitations Respiratory: Reports: Cough, Shortness of Breath Gastrointestinal: Reports: Abdominal Pain Genitourinary: Reports: Dysuria. Denies: Frequency Gynecological: Reports: Vaginal discharge Musculoskeletal: Reports: Back Pain Skin: Denies: Lesions, Rash Psychiatric: Reports: Anxiety, Depression Endocrine: Denies: Heat/ Cold Intolerance Hematologic/ Lymphatic: Denies: Easy Bruising, Easy Bleeding Patient Problems: Active and Suspected Problems Community acquired pneumonia (Acute) Anemia (Acute) - Physical Exam Vitals/I&O's: Vital Signs Temp Pulse Resp BP Pulse Ox 98.7 F 102 H 24 H 105/50 L 99 03/08/20 18:00 03/08/20 18:00 03/08/20 18:00 03/08/20 18:00 03/08/20 18:00 Oxygen Delivery Method Nasal Cannula Weight: 180 lb Body Mass Index (BMI) 31.8 Intake and Output for Last 24 Hours 03/06/20 03/07/20 03/08/20 23:59 23:59 23:59 Intake Total 1305 / 1305 Balance 1305 / 1305 General: Alert, Oriented x3, - - unomfortable HEENT: Atraumatic, EOMI Neck: Supple, Trachea Midline, Thyroid Normal Size and Texture Lungs: Diminished, Short of Breath, Tachypneic Cardiovascular: Normal S1, Normal S2, Tachycardic Abdomen: Soft, Non Tender, Non-Distended Extremities: No edema Skin: No rashes Musculoskeletal: No Tenderness to Palpation of Joints or Extremities Neurological: Neuro grossly intact Psych/Mental Status: Normal Affect Laboratory Results 03/08/20 12:20: WBC 23.4 H, RBC 2.91 L, Hgb 8.3 L, Hct 26.0 L, MCV 89.3, MCH 2 8.5, MCHC 31.9 L, RDW Std Deviation 39.1, RDW Coeff of Bria 12.1, Plt Count 402, MPV 8.9, Immature Gran % (Auto) 1.100 H, Neut % (Auto) 86.9 H, Lymph % (Auto) 6.5 L, [place] % (Auto) 4.6, Eos % (Auto) 0.6, Baso % (Auto) 0.3, Absolute Neuts (auto) 20.3 H, Absolute Lymphs (auto) 1.51, Nucleated RBC % 0, Differential Comment SCANNED, Platelet Estimate ADEQUATE, Hypochromasia 1+ 03/08/20 12:20: Sodium 138, Potassium 3.6, Chloride 104, Carbon Dioxide 27.0, Anion Gap 7, BUN 14, Creatinine 0.60, Estim Creat Clear Calc 105.16, Est GFR (MDRD) Af Amer 143, Est GFR (MDRD) Non-Af 118, BUN/Creatinine Ratio 23.2 H, Glucose 113 H, Calcium 8.6, Troponin I 0.038 03/08/20 12:20: Lactic Acid 1.4 03/08/20 12:20: Total Creatine Kinase 45 03/08/20 17:40: COVID-19 (DANNY) Pending Assessment/Plan All Active Problems Community acquired pneumonia (Acute) Anemia (Acute) 39-year-old admitted for pneumonia, also status post spontaneous approximately 4 to 5 weeks of . Quant 400, bleeding decreased significantly in the last 2 days recommend pelvic ultrasound to rule out any retained products but unlikely due to low quant and very early gestational age. Patient wishes to start control after this current admission. Anemia?follow hemoglobin and transfuse per primary service. CAP- management per primary service Multi Select Codes - Visit Charges Office Visit/Consults: 92574 IP Consult L4
--- NOTE | 2020-03-08 20:58 | US_ITS ---
STUDY: ULTRASOUND OF THE FEMALE PELVIS - COMPLETE REASON FOR EXAM: Female, 39 years old. BACK PAIN-RECENT MISCARRIAGE LMP: TECHNIQUE: Endovaginal TECHNICAL QUALITY: Adequate. COMPARISON: None. FINDINGS: The uterus is anteverted and is in a midline position. The uterus measures 7.5 x 6.0 x 5.0 cm. Nabothian cysts at the uterine cervix. The endometrium measures 15 mm in thickness, and is heterogeneous. There is no demonstrated endometrial mass. There is no demonstrated myometrial mass. The patient does not have an I.U.D. The right ovary is visualized. The right ovary measures 3.5 x 2.7 x 2.0 cm. There is no right ovarian cyst or ovarian mass. There is no visualized right adnexal mass or complex lesion. There is normal arterial and normal venous vascularity. The left ovary is visualized. The left ovary measures 3.1 x 1.9 x 1.7 cm. There is no left ovarian cyst or ovarian mass. There is no visualized left adnexal mass or complex lesion. There is normal arterial and normal venous vascularity. There is no fluid in the cul-de-sac. US/Transvaginal Non- IMPRESSION: Slightly thickened heterogeneous endometrium. Nabothian cysts. Electronically Signed: Efren Adams DO at 22:37 EDT Tel [phone], Service support ,
[2020-03-08] MEDS: Ketorolac 30 MG/ML Syringe IV (23:10)
[2020-03-08] MEDS: 0.9% Normal Saline 1,000 ML 100 ML IV (23:11)
[2020-03-08] MEDS: guaiFENesin 1,200 MG Tablet 1200 MG PO (23:18)
[2020-03-09] VITALS (20 sets, daily range): BP systolic 94–118; BP diastolic 51–68; PULSE 95–123; RESP 16–20; TEMP 36.6–37.3; O2SAT 90–100
[2020-03-09 00:27] LABS: Internal QC Validated? YES +Cl - CLEAR BKGD
[2020-03-09 00:28] LABS: Pregnancy, Serum, hCG Quali. POSITIVE Negative
[2020-03-09 00:30] LABS: Hematocrit 23.8 % (37-47); Hemoglobin 7.6 g/dL (12.0-15.0)
[2020-03-09] MEDS: oxyCODONE 5 MG Tablet PO ×3 (04:43→19:58)
[2020-03-09] MEDS: Ketorolac 30 MG/ML Syringe IV ×3 (05:25→21:59)
[2020-03-09 05:57] LABS: Absolute Lymphocyte Count 1.55 X10^3/uL (0.83-4.51); Absolute Neutrophil Count 11.3 X10^3/uL (2.0-7.7); Basophil# 0.04 X10^3/uL; Basophil% 0.3 % (0-1); Eosinophil# 0.13 X10^3/uL; Eosinophils% 0.9 % (0-5); Hematocrit 22.4 % (37-47); Hemoglobin 6.9 g/dL (12.0-15.0); Lymphocyte # 1.55 X10^3/ul (4.0); Lymphocyte % 10.9 % (19-41); Mean Corp Hgb Conc 30.8 g/dL (32-36); Mean Corpuscular Hgb 27.8 pg (27.0-32.0); Mean Corpuscular Volume 90.3 fL (81-99); Mean Platelet Vol. 8.7 fl (6.2-12.0); Monocyte# 0.98 X10^3/uL; Monocyte% 6.9 % (0-10); NRBC Flagged by Analyzer 0 % (0-5); Neutrophil # 11.34 X10^3/uL (2.7-7.7); Neutrophil % 79.9 % (47-70); Platelet Count 306 K/mm3 (150-450); RBC Distribution Width CV 12.2 % (11.6-14.6); RBC Distribution Width SD 40.4 fl (35.1-43.9); Red Blood Count 2.48 M/mm3 (4.2-5.4); White Blood Count 14.2 K/mm3 (4.4-11.0)
[2020-03-09 06:42] LABS: Anion Gap 5 (5-15); BUN 11 mg/dL (7-18); BUN/Creat Ratio 20.4 RATIO (10-20); Calcium,Total 8.1 mg/dL (8.5-10.1); Chloride 106 mmol/L (98-107); Creatinine, Serum 0.54 mg/dL (0.55-1.02); EST Glomerular Filtration Rate 134 mL/min (>60); Est Glom Filt Rate - Afr Amer 162 mL/min (>60); Estimated Creatinine Clearance 116.85 ml/min; Ferritin 77 ng/mL (8-252); Glucose 113 mg/dL (74-106); Iron 8 ug/dL (50-170); Iron Binding Capacity,Total 219 ug/dL (250-450); PERCENT IRON SATURATION 3.7 % (15.0-55.0); Potassium 3.5 mmol/L (3.5-5.1); Sodium Level 138 mmol/L (136-145)
[2020-03-09] MEDS: 0.9% Normal Saline 1,000 ML 100 ML IV (07:52)
[2020-03-09] MEDS: Ceftriaxone 1 GM/50 ML BAG IV (09:11)
[2020-03-09] MEDS: guaiFENesin 1,200 MG Tablet 1200 MG PO ×2 (09:12→21:59)
[2020-03-09] MEDS: Enoxaparin 40 MG/0.4 ML Syringe SC (09:13)
[2020-03-09 09:47] LABS: hCG Titer Quant., Serum 56 mIU/mL (1-3)
[2020-03-09] MEDS: Acetaminophen 325 MG Tablet 650 MG PO ×2 (10:52→19:58)
--- NOTE | 2020-03-09 10:54 | PN_ITS ---
Patient Problems: Active and Suspected Problems (Last Updated 03/08/20 @ 20:[address] Shadia Juarez MD) Anemia (Acute) Community acquired pneumonia (Acute) Bilateral pneumonia (Acute) Chest pain, pleuritic (Acute) Subjective: Still describing significant difficulty taking a deep breath despite the fact that she is oxygenating well on room air Vitals/I&O's: Vital Signs Temp Pulse Resp BP Pulse Ox 98.3 F 112 H 16 98/63 96 03/09/20 10:25 03/09/20 10:25 03/09/20 10:25 03/09/20 10:25 03/09/20 10:25 Oxygen Delivery Method Room Air Weight: 189 lb 9.561 oz Body Mass Index (BMI) 33.5 Intake and Output for Last 24 Hours 03/07/20 03/08/20 03/09/20 23:59 23:59 23:59 Intake Total 1305 / 1305 1528.33 / 1528.33 Balance 1305 / 1305 1528.33 / 1528.33 General: Alert, Oriented x3, Cooperative, No apparent distress HEENT: Atraumatic, PERRLA, EOMI, Normocephalic Oral: Moist Mucosa, - - Poor dentition Neck: Supple, No JVD Lungs: Clear to auscultation, Normal air movement, No rhonchi, No wheeze, No rales, Diminished Cardiovascular: Regular rate, Regular Rhythm, Normal S1, Normal S2, No murmurs Abdomen: Soft, Non Tender, Non-Distended, No Hepato-splenomegaly Extremities: No edema, Capillary Refill Less than 3 Seconds Skin: No rashes, No breakdown Neurological: Neuro grossly intact, Sensory exam intact to light touch and pain Psych/Mental Status: Normal Affect, Appropriate Microbiology Past 72 Hours 03/09/20 09:50 Urine, Clean Catch Legionella Antigen - Final 03/09/20 09:50 Urine, Clean Catch Streptococcus pneumoniae Antigen (M - Final Laboratory Results 03/08/20 12:20: WBC 23.4 H, RBC 2.91 L, Hgb 8.3 L, Hct 26.0 L, MCV 89.3, MCH 28.5, MCHC 31.9 L, RDW Std Deviation 39.1, RDW Coeff of Bria 12.1, Plt Count 402, MPV 8.9, Immature Gran % (Auto) 1.100 H, Neut % (Auto) 86.9 H, Lymph % (Auto) 6.5 L, [place] % (Auto) 4.6, Eos % (Auto) 0.6, Baso % (Auto) 0.3, Absolute Neuts (auto) 20.3 H, Absolute Lymphs (auto) 1.51, Nucleated RBC % 0, Differential Comment SCANNED, Platelet Estimate ADEQUATE, Hypochromasia 1+ 03/08/20 12:20: Sodium 138, Potassium 3.6, Chloride 104, Carbon Dioxide 27.0, Anion Gap 7, BUN 14, Creatinine 0.60, Estim Creat Clear Calc 105.16, Est GFR (MDRD) Af Amer 143, Est GFR (MDRD) Non-Af 118, BUN/Creatinine Ratio 23.2 H, Glucose 113 H, Calcium 8.6, Troponin I 0.038 03/08/20 12:20: Lactic Acid 1.4 03/08/20 12:20: Total Creatine Kinase 45 03/08/20 17:40: COVID-19 (DANNY) Not Detected 03/08/20 23:37: Hgb 7.6 L, Hct 23.8 L 03/08/20 23:37: Serum , Qual POSITIVE H 03/08/20 23:37: Blood Type A NEGATIVE, Antibody Screen POSITIVE H, Antibody Identification ANTI-D, Crossmatch See Detail 03/09/20 05:34: WBC 14.2 H, RBC 2.48 L, Hgb 6.9 L, Hct 22.4 L, MCV 90.3, MCH 27.8, MCHC 30.8 L, RDW Std Deviation 40.4, RDW Coeff of Bria 12.2, Plt Count 306, MPV 8.7, Immature Gran % (Auto) 1.100 H, Neut % (Auto) 79.9 H, Lymph % (Auto) 10.9 L, [place] % (Auto) 6.9, Eos % (Auto) 0.9, Baso % (Auto) 0.3, Absolute Neuts (auto) 11.3 H, Absolute Lymphs (auto) 1.55, Nucleated RBC % 0 03/09/20 05:34: Sodium 138, Potassium 3.5, Chloride 106, Carbon Dioxide 27.0, Anion Gap 5, BUN 11, Creatinine 0.54 L, Estim Creat Clear Calc 116.85, Est GFR (MDRD) Af Amer 162, Est GFR (MDRD) Non-Af 134, BUN/Creatinine Ratio 20.4 H, Glucose 113 H, Calcium 8.1 L, Iron 8 L, TIBC 219 L, Iron Saturation 3.7 L, Ferritin 77 03/09/20 08:47: HCG, Quant 56 H Current Medications Acetaminophen (Acetaminophen 325 Mg Tablet) 650 mg PO Q6H PRN PRN PRN Reason: Pain Score 1-10/Temp > 100.7 F Last Admin: 03/09/20 10:52 Dose: 650 mg Documented by: Albuterol Sulfate (Albuterol 2.5 Mg/3 Ml Vial.Neb.) 2.5 mg INHALATION Q4H PRN PRN PRN Reason: Shortness of Breath/Wheezing Enoxaparin Sodium (Enoxaparin 40 Mg/0.4 Ml Syringe) 40 mg SC DAILY REPLACED BY [facility] Last Admin: 03/09/20 09:13 Dose: 40 mg Documented by: Guaifenesin (Guaifenesin 1,200 Mg Tablet) 1,200 mg PO BID REPLACED BY [facility] Last Admin: 03/09/20 09:12 Dose: 1,200 mg Documented by: Sodium Chloride () 1,000 mls @ 100 mls/hr IV .Q10H REPLACED BY [facility] Stop: 03/09/20 18:34 Last Infusion: 03/09/20 09:58 Dose: 0 mls/hr Documented by: Ceftriaxone Sodium (Rocephin) 1 gm in 50 mls @ 100 mls/hr IV Q24 REPLACED BY [facility] Last Infusion: 03/09/20 09:48 Dose: Infused Documented by: Azithromycin 500 mg/ Dextrose 255 mls @ 250 mls/hr IV Q24 REPLACED BY [facility] Last Admin: 03/09/20 09:58 Dose: 250 mls/hr Documented by: Sodium Chloride () 250 mls @ 15 mls/hr IV .[id number] PRN PRN Reason: Saline Flush Sodium Chloride () 250 mls @ 15 mls/hr IV .[id number] PRN PRN Reason: Additional IVPB Infusion Ketorolac Tromethamine (Ketorolac 30 Mg/Ml Syringe) 30 mg IV Q8 REPLACED BY [facility] Stop: 03/13/20 22:36 Last Admin: 10/27/20 05:25 Dose: 30 mg Documented by: Ondansetron HCl (Ondansetron 4 Mg/2 Ml Vial) 4 mg IV Q8H PRN PRN PRN Reason: NAUSEA/VOMITING Oxycodone HCl (Oxycodone 5 Mg Tablet) 5 mg PO Q6H PRN PRN PRN Reason: Pain Score 6-10 Last Admin: 03/09/20 10:53 Dose: 5 mg Documented by: Senna/Docusate Sodium (Senna/Docusate Sodium 1 Tablet) 2 tablet PO BID PRN PRN PRN Reason: Constipation Sodium Chloride (0.9% Saline Lock 10 Ml Syringe) 10 - 40 ml IV UD PRN PRN Reason: SALINE FLUSH Zolpidem Tartrate (Zolpidem Tartrate 5 Mg Tablet) 5 mg PO QHS PRN PRN PRN Reason: INSOMNIA STROKE Vital Signs/Narrative: Vital Signs Temp Pulse Resp BP Pulse Ox 03/09/20 10:25 98.3 F 112 H 16 98/63 96 03/09/20 08:01 90 03/09/20 08:00 98.2 F 97 18 96/53 L 92 Medical Necessity - Tobacco Use Smoking Status: Current every day smoker Tobacco Use: Cigarettes Assessment/Plan All Active Problems (Last Updated 03/08/20 @ 20:[address] Shadia Juarez MD) Anemia (Acute) Community acquired pneumonia (Acute) Bilateral pneumonia (Acute) Chest pain, pleuritic (Acute) 1. Right lower lobe community-acquired pneumonia likely secondary to a gram- positive organism -Legionella antigen and urine strep antigen are negative -Continue with Rocephin and azithromycin -Blood cultures are pending -Encourage incentive spirometer -Encourage ambulation and getting up out of bed 2. Miscarriage with acute blood loss anemia -She has had bleeding from a miscarriage of a 4 to 5-week though she states that it has significantly improved -Transvaginal ultrasound does not demonstrate any remaining products -She is receiving a 1 unit transfusion currently for hemoglobin of 6.9 -Appreciate OB's assistance 3. Anxiety/depression -Stable -Not managed with medications DVT: SCDs Inpatient E&M: 38507 Subs Hosp L2
[2020-03-09] MEDS: Ondansetron 4 MG/2 ML Vial IV (14:28)
[2020-03-09] MEDS: Senna/Docusate Sodium 1 Tablet 2 TABLET PO (14:28)
--- NOTE | 2020-03-09 15:45 | CASEMGMT ---
RN JORGE HEADLIGHT ADJUSTER CM to room to meet with patient for initial transition planning/care coordination assessment. TAMMI PATEL introduced self and role at [facility]. Pt voices understanding and consents to assessment at this time. Pt resting in bed in no distress at this time. Pt is A/O at this time and answers all questions appropriately. Care providers, pharmacy, and demographics verified/updated at this time. PCP: Dr Saldana Specialists: states none at this time. Preferred Pharmacy: [facility] Insurance: [employer] Prescription Benefit: Yes Living Will/HPOA: Pt does not currently have LW/HCPOA and declines info at this time. LNOK: Mother, Stephany. Has 2 children Living Arrangements: Lives in one-story home w/basement. Her 2 children live with her and their dad stays their sometimes. Independent. Transportation: Pt states drives self and states no transportation concerns at this time. Mom will take her home @ discharge. DME: Denies using any DME and denies needs. HHC/SNF: No history of either. No needs identified. Pt wishes to return home and states has no concerns with going home at time of discharge. CM to follow for any discharge planning/needs. Pt voices no concerns/needs at this time. Advised pt to ask for CM if any questions/concerns/needs arise. Voices understanding. PLAN: Home Nakita IZAGUIRRE RN, CM
[2020-03-09] MEDS: Albuterol 2.5 MG/3 ML VIAL.NEB. INHALATION (20:07)
[2020-03-09 20:58] LABS: Hematocrit 25.5 % (37-47); Hemoglobin 8.2 g/dL (12.0-15.0)
[2020-03-09] MEDS: hydrOXYzine 10 MG Tablet PO (21:58)
[2020-03-09] MEDS: 0.9% Saline Lock 10 ML Syringe IV (22:00)
[2020-03-09] MEDS: Zolpidem Tartrate 5 MG Tablet PO (23:00)
[2020-03-10] VITALS (11 sets, daily range): BP systolic 102–116; BP diastolic 52–75; PULSE 85–106; RESP 16–18; TEMP 36.4–37.1; O2SAT 92–96
[2020-03-10] MEDS: hydrOXYzine 10 MG Tablet PO ×3 (03:31→20:55)
[2020-03-10] MEDS: Acetaminophen 325 MG Tablet 650 MG PO ×3 (03:37→19:43)
[2020-03-10] MEDS: Ketorolac 30 MG/ML Syringe IV ×3 (05:51→22:05)
[2020-03-10] MEDS: 0.9% Saline Lock 10 ML Syringe IV ×3 (05:52→22:06)
[2020-03-10 06:19] LABS: Absolute Lymphocyte Count 1.42 X10^3/uL (0.83-4.51); Basophil# 0.04 X10^3/uL; Basophil% 0.3 % (0-1); Eosinophil# 0.13 X10^3/uL; Eosinophils% 1.1 % (0-5); Hematocrit 25.2 % (37-47); Hemoglobin 7.9 g/dL (12.0-15.0); Lymphocyte # 1.42 X10^3/ul (4.0); Lymphocyte % 11.6 % (19-41); Mean Corp Hgb Conc 31.3 g/dL (32-36); Mean Corpuscular Hgb 28.2 pg (27.0-32.0); Mean Platelet Vol. 8.7 fl (6.2-12.0); Monocyte# 0.62 X10^3/uL; NRBC Flagged by Analyzer 0 % (0-5); Neutrophil # 9.97 X10^3/uL (2.7-7.7); Neutrophil % 81.2 % (47-70); Platelet Count 333 K/mm3 (150-450); RBC Distribution Width CV 12.7 % (11.6-14.6); RBC Distribution Width SD 41.9 fl (35.1-43.9); White Blood Count 12.3 K/mm3 (4.4-11.0)
[2020-03-10 06:45] LABS: Anion Gap 6 (5-15); BUN 10 mg/dL (7-18); BUN/Creat Ratio 22.3 RATIO (10-20); Chloride 107 mmol/L (98-107); Creatinine, Serum 0.45 mg/dL (0.55-1.02); EST Glomerular Filtration Rate 166 mL/min (>60); Est Glom Filt Rate - Afr Amer 201 mL/min (>60); Estimated Creatinine Clearance 140.22 ml/min; Glucose 99 mg/dL (74-106); Potassium 3.5 mmol/L (3.5-5.1); Sodium Level 139 mmol/L (136-145)
[2020-03-10] MEDS: Sertraline 50 MG Tablet PO (09:36)
[2020-03-10] MEDS: Ceftriaxone 1 GM/50 ML BAG IV (09:36)
[2020-03-10] MEDS: guaiFENesin 1,200 MG Tablet 1200 MG PO ×2 (09:36→22:05)
[2020-03-10] MEDS: oxyCODONE 5 MG Tablet PO ×2 (09:39→19:44)
[2020-03-10] MEDS: Senna/Docusate Sodium 1 Tablet 2 TABLET PO ×2 (09:46→19:44)
--- NOTE | 2020-03-10 14:33 | CHAPLAIN ---
Type of Pastoral Visit _x__ Initial Visit ___ Follow-up Visit ___ On-call Visit ___ General Patient Visit ___ Spiritual Assessment ___ Family Conference ___ Bereavement ___ Rapid Response ___ Code Blue ___ Other (describe below) Pastoral Care Referral From _x__ Patient ___ Family ___ Nurse ___ Physician ___ [employer] Custodian ___ Money Room Supervisor ___ Other (describe below) Sacrament/Intervention ___ Active listening ___ Anointing ___ Orthodox ___ Bereavement ___ Communion ___ Naomi exploration ___ ___ Life review ___ Prayer ___ Reconciliation ___ Sacrament of Sick ___ Supportive presence ___ Wedding _x__ Other (describe below) Pastoral Comments patient is resting; offered support to patient but she states she is fine and would rather sleep
--- NOTE | 2020-03-10 15:01 | PN_ITS ---
Patient Problems: Active and Suspected Problems (Last Updated 03/08/20 @ 20:[address] Shadia Juarez MD) Anemia (Acute) Community acquired pneumonia (Acute) Bilateral pneumonia (Acute) Chest pain, pleuritic (Acute) Subjective: Not requiring any oxygen this morning, and she denies any lightheadedness. She still feels like she cannot take a deep breath Vitals/I&O's: Vital Signs Temp Pulse Resp BP Pulse Ox 97.8 F 89 18 112/69 96 03/10/20 14:19 03/10/20 14:19 03/10/20 14:19 03/10/20 14:19 03/10/20 14:19 Oxygen Flow Rate (L/min) 2 Oxygen Delivery Method Room Air Weight: 189 lb 9.561 oz Body Mass Index (BMI) 33.5 Intake and Output for Last 24 Hours 03/08/20 03/09/20 03/10/20 23:59 23:59 23:59 Intake Total 1305 / 1305 3731.66 / 3731.66 605 / 605 Output Total 950 / 950 600 / 600 Balance 1305 / 1305 2781.66 / 2781.66 5 / 5 General: Alert, Oriented x3, Cooperative, No apparent distress HEENT: Atraumatic, PERRLA, EOMI, Normocephalic Oral: Moist Mucosa, - - Poor dentition Neck: Supple, No JVD Lungs: Clear to auscultation, Normal air movement, No rhonchi, No wheeze, No rales, Diminished Cardiovascular: Regular rate, Regular Rhythm, Normal S1, Normal S2, No murmurs Abdomen: Soft, Non Tender, Non-Distended, No Hepato-splenomegaly Extremities: No edema, Capillary Refill Less than 3 Seconds Skin: No rashes, No breakdown Neurological: Neuro grossly intact, Sensory exam intact to light touch and pain Psych/Mental Status: Normal Affect, Appropriate Microbiology Past 72 Hours 03/09/20 09:50 Urine, Clean Catch Legionella Antigen - Final 03/09/20 09:50 Urine, Clean Catch Streptococcus pneumoniae Antigen (M - Final Laboratory Results 03/08/20 23:37: Blood Type A NEGATIVE, Antibody Screen POSITIVE H, Antibody Identification ANTI-D, Crossmatch See Detail 03/09/20 20:47: Hgb 8.2 L, Hct 25.5 L 03/10/20 06:06: WBC 12.3 H, RBC 2.80 L, Hgb 7.9 L, Hct 25.2 L, MCV 90.0, MCH 28.2, MCHC 31.3 L, RDW Std Deviation 41.9, RDW Coeff of Bria 12.7, Plt Count 333, MPV 8.7, Immature Gran % (Auto) 0.800, Neut % (Auto) 81.2 H, Lymph % (Auto) 11.6 L, [place] % (Auto) 5.0, Eos % (Auto) 1.1, Baso % (Auto) 0.3, Absolute Neuts (auto) 10.0 H, Absolute Lymphs (auto) 1.42, Nucleated RBC % 0 03/10/20 06:06: Sodium 139, Potassium 3.5, Chloride 107, Carbon Dioxide 26.0, Anion Gap 6, BUN 10, Creatinine 0.45 L, Estim Creat Clear Calc 140.22, Est GFR (MDRD) Af Amer 201, Est GFR (MDRD) Non-Af 166, BUN/Creatinine Ratio 22.3 H, Glucose 99, Calcium 8.0 L Current Medications Acetaminophen (Acetaminophen 325 Mg Tablet) 650 mg PO Q6H PRN PRN PRN Reason: Pain Score 1-10/Temp > 100.7 F Last Admin: 03/10/20 09:39 Dose: 650 mg Documented by: Albuterol Sulfate (Albuterol 2.5 Mg/3 Ml Vial.Neb.) 2.5 mg INHALATION Q4H PRN PRN PRN Reason: Shortness of Breath/Wheezing Last Admin: 03/09/20 20:07 Dose: 2.5 mg Documented by: Guaifenesin (Guaifenesin 1,200 Mg Tablet) 1,200 mg PO BID [facility] Last Admin: 03/10/20 09:36 Dose: 1,200 mg Documented by: Hydroxyzine HCl (Hydroxyzine 10 Mg Tablet) 10 mg PO 4X/DAY PRN PRN PRN Reason: ANXIETY Last Admin: 03/10/20 14:29 Dose: 10 mg Documented by: Ceftriaxone Sodium (Rocephin) 1 gm in 50 mls @ 100 mls/hr IV Q24 [facility] Last Infusion: 03/10/20 10:06 Dose: Infused Documented by: Azithromycin 500 mg/ Dextrose 255 mls @ 250 mls/hr IV Q24 [facility] Last Infusion: 03/10/20 11:55 Dose: Infused Documented by: Sodium Chloride () 250 mls @ 15 mls/hr IV .[id number] PRN PRN Reason: Saline Flush Sodium Chloride () 250 mls @ 15 mls/hr IV .[id number] PRN PRN Reason: Additional IVPB Infusion Ketorolac Tromethamine (Ketorolac 30 Mg/Ml Syringe) 30 mg IV Q8 GISELLE Stop: 03/13/20 22:36 Last Admin: 03/10/20 14:16 Dose: 30 mg Documented by: Ondansetron HCl (Ondansetron 4 Mg/2 Ml Vial) 4 mg IV Q8H PRN PRN PRN Reason: NAUSEA/VOMITING Last Admin: 03/09/20 14:28 Dose: 4 mg Documented by: Oxycodone HCl (Oxycodone 5 Mg Tablet) 5 mg PO Q6H PRN PRN PRN Reason: Pain Score 6-10 Last Admin: 03/10/20 09:39 Dose: 5 mg Documented by: Polyethylene Glycol (Polyethylene Glycol 3350 17 Gm Packet) 17 gm PO BID [facility] Senna/Docusate Sodium (Senna/Docusate Sodium 1 Tablet) 2 tablet PO BID PRN PRN PRN Reason: Constipation Last Admin: 03/10/20 09:46 Dose: 2 tablet Documented by: Sertraline HCl (Sertraline 50 Mg Tablet) 50 mg PO DAILY [facility] Last Admin: 03/10/20 09:36 Dose: 50 mg Documented by: Sodium Chloride (0.9% Saline Lock 10 Ml Syringe) 10 - 40 ml IV UD PRN PRN Reason: SALINE FLUSH Last Admin: 03/10/20 09:47 Dose: 10 ml Documented by: Zolpidem Tartrate (Zolpidem Tartrate 5 Mg Tablet) 5 mg PO QHS PRN PRN PRN Reason: INSOMNIA Last Admin: 03/09/20 23:00 Dose: 5 mg Documented by: STROKE Vital Signs/Narrative: Vital Signs Temp Pulse Resp BP Pulse Ox 03/10/20 14:19 97.8 F 89 18 112/69 96 Medical Necessity - Tobacco Use Smoking Status: Current every day smoker Tobacco Use: Cigarettes Assessment/Plan All Active Problems (Last Updated 03/08/20 @ 20:[address] Shadia Juarez MD) Anemia (Acute) Community acquired pneumonia (Acute) Bilateral pneumonia (Acute) Chest pain, pleuritic (Acute) 1. Right lower lobe community-acquired pneumonia likely secondary to a gram- positive organism -Legionella antigen and urine strep antigen are negative -Continue with Rocephin and azithromycin -Blood cultures are pending -Encourage incentive spirometer -Encourage ambulation and getting up out of bed 2. Miscarriage with acute blood loss anemia -She has had bleeding from a miscarriage of a 4 to 5-week though she states that it has significantly improved -Transvaginal ultrasound does not demonstrate any remaining products -She is receiving a 1 unit transfusion currently for hemoglobin of 6.9 corrected to 8.2 and was 7.9 this morning -Appreciate OB's assistance 3. Anxiety/depression -Stable -She says that she gets anxiety fairly chronically and it is not situational. We will start her on Zoloft 50 mg p.o. daily and she can be discharged with this and follow-up with her primary care doctor or psychiatrist as an outpatient. DVT: SCDs Inpatient E&M: 18598 Subs Hosp L2
--- NOTE | 2020-03-10 15:04 | CASEMGMT ---
Social Work Note SW updated that pt had recent miscarriage. SW reviewed chart, pt had miscarriage about 4 days ago. SW met with pt, introduced self and role at [facility]. Pt is alert and orientated x3. Pt confirms she recently had a miscarriage. SW offered support to pt. Pt states that she has handling it well. Pt states she didn't know she was and the was early. Pt states she was a little tearful in the beginning but states she is doing well now. SW offered to provide pt with resources, pt denied. Pt denied additional needs or concerns at this time. Jaki Mitchell SITE RELIABILITY ENGINEER, REAMING MACHINE TENDER
[2020-03-10] MEDS: Polyethylene Glycol 3350 17 GM PACKET PO ×2 (15:26→19:47)
[2020-03-10] MEDS: Zolpidem Tartrate 5 MG Tablet PO (22:05)
[2020-03-11 01:05] VITALS: PULSE 112
[2020-03-11 02:05] VITALS: BP 112/69; PULSE 106; RESP 18; TEMP 36.8; O2SAT 94
[2020-03-11] MEDS: Acetaminophen 325 MG Tablet 650 MG PO ×2 (04:00→09:28)
[2020-03-11] MEDS: oxyCODONE 5 MG Tablet PO (04:00)
[2020-03-11 04:27] VITALS: PULSE 100
[2020-03-11] MEDS: Ketorolac 30 MG/ML Syringe IV (06:08)
[2020-03-11] MEDS: hydrOXYzine 10 MG Tablet PO (06:08)
[2020-03-11] MEDS: 0.9% Saline Lock 10 ML Syringe IV ×2 (06:10→09:29)
[2020-03-11 06:29] LABS: Absolute Lymphocyte Count 1.38 X10^3/uL (0.83-4.51); Absolute Neutrophil Count 8.4 X10^3/uL (2.0-7.7); Basophil# 0.03 X10^3/uL; Basophil% 0.3 % (0-1); Eosinophil# 0.19 X10^3/uL; Eosinophils% 1.8 % (0-5); Hematocrit 26.4 % (37-47); Hemoglobin 8.3 g/dL (12.0-15.0); Lymphocyte # 1.38 X10^3/ul (4.0); Lymphocyte % 12.9 % (19-41); Mean Corp Hgb Conc 31.4 g/dL (32-36); Mean Corpuscular Hgb 28.1 pg (27.0-32.0); Mean Corpuscular Volume 89.5 fL (81-99); Mean Platelet Vol. 8.9 fl (6.2-12.0); Monocyte# 0.52 X10^3/uL; Monocyte% 4.9 % (0-10); NRBC Flagged by Analyzer 0 % (0-5); Neutrophil # 8.36 X10^3/uL (2.7-7.7); Neutrophil % 78.4 % (47-70); Platelet Count 379 K/mm3 (150-450); RBC Distribution Width CV 12.6 % (11.6-14.6); RBC Distribution Width SD 41.1 fl (35.1-43.9); Red Blood Count 2.95 M/mm3 (4.2-5.4); White Blood Count 10.7 K/mm3 (4.4-11.0)
[2020-03-11 07:59] VITALS: PULSE 100
[2020-03-11] MEDS: Ceftriaxone 1 GM/50 ML BAG IV (09:24)
[2020-03-11] MEDS: Polyethylene Glycol 3350 17 GM PACKET PO (09:24)
[2020-03-11] MEDS: guaiFENesin 1,200 MG Tablet 1200 MG PO (09:24)
[2020-03-11] MEDS: Sertraline 50 MG Tablet PO (09:24)
[2020-03-11] MEDS: Senna/Docusate Sodium 1 Tablet 2 TABLET PO (09:28)
[2020-03-11 09:40] VITALS: BP 114/65; PULSE 109; RESP 16; TEMP 36.7; O2SAT 94
--- NOTE | 2020-03-11 10:20 | PCM.DC ---
- Discharge Diagnoses Current Active Problems: Current Active and Chronic Problems (Last Updated 03/08/20 @ 20:[address] Shadia Juarez MD) Kidney stones (Chronic) Anxiety and depression (Chronic) Anemia (Acute) Community acquired pneumonia (Acute) Bilateral pneumonia (Acute) Chest pain, pleuritic (Acute) You will use the following diet at home:: Regular Your food should be the consistency of: Regular Your liquids should be the consistency of: Regular/Thin Discharge Activity: Return to Normal Activity Call your doctor if you observe: Fever of 101 or Higher, Shortness of breath, Dizziness, Fainting spells, Swelling in the ankles, Chest pain, Increased palpitations (irregular heartbeat) Allergies/Adverse Reactions: Allergies amoxicillin [Amoxicillin] Allergy (Verified 03/08/20 11:41) Hives Penicillins Allergy (Verified 03/08/20 11:41) Swelling Medications to take at Discharge Cyclobenzaprine HCl 10 mg PO TID PRN PRN 03/08/20 Azithromycin 500 mg PO DAILY #2 tab 03/11/20 Cefdinir [Omnicef [equiv]] 300 mg PO Q12H #10 cap 03/11/20 Sertraline HCl [Zoloft] 50 mg PO DAILY #60 tab 03/11/20 The following prescriptions were given: Azithromycin 500 mg PO DAILY #2 tab Transmission Status: Pending to [facility] Cefdinir [Omnicef [equiv]] 300 mg PO Q12H #10 cap Transmission Status: Pending to [facility] Sertraline HCl [Zoloft] 50 mg PO DAILY #60 tab Transmission Status: Pending to [facility] Primary Care Physician: Isaías Saldana MD [Primary Care Provider] - Please follow up with your Primary Care Physician in: 3-5 Days Test Results: Test results from this visit will be discussed in further detail at your follow-up appointment, if applicable.
[2020-03-11] MEDS: Magnesium Citrate 300 ML 150 ML PO (11:50)
--- NOTE | 2020-03-11 14:10 | DS.PCM_ITS ---
Discharge Date and Diagnosis - Problem List Patient Problems: Active and Suspected Problems (Last Updated 03/08/20 @ 20:[address] Shadia Juarez MD) Anemia (Acute) Community acquired pneumonia (Acute) Bilateral pneumonia (Acute) Chest pain, pleuritic (Acute) Date of Admission: 03/08/20 Date of Discharge: 03/11/20 - Primary Discharge Diagnosis Acute Problems: Active Problems (Last Updated 03/08/20 @ 20:[address] Shadia Juarez MD) Anemia (Acute) Community acquired pneumonia (Acute) Bilateral pneumonia (Acute) Chest pain, pleuritic (Acute) - Secondary Discharge Diagnosis Chronic Problems: Chronic Problems (Last Updated 03/08/20 @ 20:[address] Shadia Juarez MD) Kidney stones (Chronic) Anxiety and depression (Chronic) Hospital Course and Treatment Imaging Results: Clinical Impression(s) from Imaging Studies Chest X-Ray 03/08/20 12:40 IMPRESSION: Patchy bibasilar infiltrates more prominent on the right side. There is blunting of the right costophrenic angle. Electronically Signed: Crow Mane, at 13:52 EDT , Service support , Transvaginal US 03/08/20 20:58 IMPRESSION: Slightly thickened heterogeneous endometrium. Nabothian cysts. Electronically Signed: Efren Adams DO at 22:37 EDT Tel [phone], Service support , Consults: AUTOMATION TEST ENGINEER Operations: None Procedures: None Summary of Care Provided: PEr HPI: The patient is a 39 year old F with past medical history as mentioned above presented to the emergency room because of right upper back pain or shortness of breath. Her symptoms started 2 days ago with gradually increasing right upper back pain, sharp pain, 8 out of 10 in severity, extends around right lateral chest to go to the right side of her anterior chest, aggravated by taking a deep breath or coughing, associated with mild shortness of breath as well as dry cough. She denied fever or chills. Patient presented to the emergency room yesterday, had CTA chest done and she was found to have pneumonia and she elected to go home on oral antibiotics. She came back today with increasing right upper back pain as well as shortness of breath. Also, she complains of vaginal bleeding. She had miscarriage 4 days ago. In the emergency department, patient was afebrile, tachycardic, blood pressure stable, was tachypneic, pulse ox was 95% on room air. Her routine blood work was remarkable for significant leukocytosis, hemoglobin of 8.3 g/dL. BMP was unremarkable. EKG revealed sinus tachycardia, no acute changes. Troponin was 0.038. Chest x-ray revealed right basilar infiltrate with small right pleural effusion. COVID-19 PCR is negative. She is being admitted for acute right lower lobe community-acquired pneumonia and anemia. Hospital Course: 1. Right lower lobe community-acquired pneumonia likely secondary to a gram- positive organism -Legionella antigen and urine strep antigen are negative -Continue with Rocephin and azithromycin -Blood cultures are unremarkable -Encourage incentive spirometer -Encourage ambulation and getting up out of bed -Discharged on Omnicef and azithromycin to complete her antibiotic course. I discussed the plan for discharge with her and she expressed understanding the risk benefits and would like to go home 2. Miscarriage with acute blood loss anemia -She has had bleeding from a miscarriage of a 4 to 5-week though she states that it has significantly improved -Transvaginal ultrasound does not demonstrate any remaining products -She is receiving a 1 unit transfusion currently for hemoglobin of 6.9 corrected to 8.2 and was 7.9 yesterday, this morning her hemoglobin is 8.3 -Appreciate OB's assistance 3. Anxiety/depression -Stable -She says that she gets anxiety fairly chronically and it is not situational. We will start her on Zoloft 50 mg p.o. daily and she can be discharged with this and follow-up with her primary care doctor or psychiatrist as an outpatient. Patient Problems: Active and Suspected Problems (Last Updated 03/08/20 @ 20:[address] Shadia Juarez MD) Anemia (Acute) Community acquired pneumonia (Acute) Bilateral pneumonia (Acute) Chest pain, pleuritic (Acute) - Physical Exam Vitals/I&O's: Vital Signs Temp Pulse Resp BP Pulse Ox 98.1 F 109 H 16 114/65 94 03/11/20 09:40 03/11/20 09:40 03/11/20 09:40 03/11/20 09:40 03/11/20 09:40 Oxygen Flow Rate (L/min) 2 Oxygen Delivery Method Room Air Weight: 189 lb 9.561 oz Body Mass Index (BMI) 33.5 Intake and Output for Last 24 Hours 03/09/20 03/10/20 03/11/20 23:59 23:59 23:59 Intake Total 3731.66 / 3731.66 1105 / 1105 305 / 305 Output Total 950 / 950 600 / 600 Balance 2781.66 / 2781.66 505 / 505 305 / 305 General: Alert, Oriented x3, Cooperative, No apparent distress HEENT: Atraumatic, PERRLA, EOMI, Normocephalic Oral: Moist Mucosa, - - Poor dentition Neck: Supple, No JVD Lungs: Clear to auscultation, Normal air movement, No rhonchi, No wheeze, No rales, Diminished Cardiovascular: Regular rate, Regular Rhythm, Normal S1, Normal S2, No murmurs Abdomen: Soft, Non Tender, Non-Distended, No Hepato-splenomegaly Extremities: No edema, Capillary Refill Less than 3 Seconds Skin: No rashes, No breakdown Neurological: Neuro grossly intact, Sensory exam intact to light touch and pain Psych/Mental Status: Normal Affect, Appropriate Microbiology Past 72 Hours 03/08/20 15:40 Blood Culture (Wb) - Anticubital Right Blood Culture - Preliminary No growth in 48 hours. 03/08/20 12:20 Blood Culture (Wb) - Anticubital Left Blood Culture - Preliminary No growth in 48 hours. 03/09/20 09:50 Urine, Clean Catch Legionella Antigen - Final 03/09/20 09:50 Urine, Clean Catch Streptococcus pneumoniae Antigen (M - Final Laboratory Results 03/11/20 05:55: WBC 10.7, RBC 2.95 L, Hgb 8.3 L, Hct 26.4 L, MCV 89.5, MCH 28.1, MCHC 31.4 L, RDW Std Deviation 41.1, RDW Coeff of Bria 12.6, Plt Count 379, MPV 8.9, Immature Gran % (Auto) 1.700 H, Neut % (Auto) 78.4 H, Lymph % (Auto) 12.9 L , [place] % (Auto) 4.9, Eos % (Auto) 1.8, Baso % (Auto) 0.3, Absolute Neuts (auto) 8.4 H, Absolute Lymphs (auto) 1.38, Nucleated RBC % 0 Discharge Activity: Return to Normal Activity Call your doctor if you observe: Fever of 101 or Higher, Shortness of breath, Dizziness, Fainting spells, Swelling in the ankles, Chest pain, Increased palpitations (irregular heartbeat) Home Medications: Medications to take at Discharge Cyclobenzaprine HCl 10 mg PO TID PRN PRN 03/08/20 Azithromycin 500 mg PO DAILY #2 tab 03/11/20 Cefdinir [Omnicef [equiv]] 300 mg PO Q12H #10 cap 03/11/20 Sertraline HCl [Zoloft] 50 mg PO DAILY #60 tab 03/11/20 Following Prescriptions Were Given to Patient: Azithromycin 500 mg PO DAILY #2 tab Transmission Status: Received by [facility] Cefdinir [Omnicef [equiv]] 300 mg PO Q12H #10 cap Transmission Status: Received by [facility] Sertraline HCl [Zoloft] 50 mg PO DAILY #60 tab Transmission Status: Received by [facility] Primary Care Physician: Isaías Saldana MD [Primary Care Provider] - Please follow up with your Primary Care Physician in: 3-5 Days Disposition: Home Minutes spent on discharge:: 35 Patient Condition:: Stable Medical Necessity - Tobacco Use Smoking Status: Current every day smoker Tobacco Use: Cigarettes Meaningful Use Info Meaningful Use Diagnoses (Choose all that apply): None applicable Inpatient E&M: 64412 Disch Hosp
== END 2020-03-11 12:07 | disposition home or self-care (01) | DRG 139 ==
LOC: ED 18:21 → MS3 18:24
PROVIDERS: Obstetrics & Gynecology; Admitting Provider Hospitalist; Emergency Provider Emergency Medicine; PCP Family Medicine; Visit Provider Family Medicine
DX: J18.9 Pneumonia, unspecified organism (principal); D62 Acute posthemorrhagic anemia; J90 Pleural effusion, not elsewhere classified; D72.829 Elevated white blood cell count, unspecified; F17.210 Nicotine dependence, cigarettes, uncomplicated; O03.6 Delayed or excessive hemorrhage following complete or unspecified spontaneous abortion; F32.9 Major depressive disorder, single episode, unspecified; F41.9 Anxiety disorder, unspecified
CPT/HCPCS: 36415; 71045; 71275; 76830; 80048; 82550; 82728; 83540; 83550; 83605; 84484; 84702; 84703; 85014; 85018; 85025; 86850; 86870; 86900; 86901; 86920; 86921; 86922; 87040; 87449; 87633; 87635; 93005; 94640; 96374; 96375; 99251; 99283; 99284; J7030; J7040; P9016; Q9967; 90686; A4216; G0463; J2405; U0002; U0003

== ENCOUNTER 2020-04-06 11:01 | Emergency (ER) | payer MEDICAID, SELFPAY ==
[2020-03-08 22:39] VITALS: BMI 33.5
[2020-04-06 11:03] VITALS: BP 151/85; PULSE 91; RESP 17; TEMP 35.9; O2SAT 100; BMI 34.2
[2020-04-06 11:39] VITALS: BP 129/84; PULSE 74; RESP 15; TEMP 36.4; O2SAT 99
--- NOTE | 2020-04-06 11:45 | RAD_ITS ---
EXAM DESCRIPTION: PORTABLE AP CHEST CLINICAL HISTORY: 39 years Female, INCREASED FATIGUE AND BACK PAIN. DX WITH PNEUMONIA 2 WEEKS AGO. INCREASED FATIGUE AND BACK PAIN. DX WITH PNEUMONIA 2 WEEKS AGO. COMPARISON: Previous portable chest obtained on 03/08/2020 FINDINGS: The thorax is intact. The heart and mediastinum appear to be within normal limits. The lungs show some blunting of the right lateral costophrenic angle due to a small right lung base pleural effusion. RAD/Chest 1 View (Portable) IMPRESSION: Small right lung base pleural effusion. Electronically Signed: Drkae Reilly, at 12:03 EST Tel , Service support ,
[2020-04-06 11:46] LABS: Absolute Lymphocyte Count 2.01 X10^3/uL (0.83-4.51); Absolute Neutrophil Count 7.7 X10^3/uL (2.0-7.7); Basophil# 0.08 X10^3/uL; Basophil% 0.7 % (0-1); Eosinophil# 0.38 X10^3/uL; Eosinophils% 3.5 % (0-5); Hematocrit 38.3 % (37-47); Hemoglobin 11.3 g/dL (12.0-15.0); Lymphocyte # 2.01 X10^3/ul (4.0); Lymphocyte % 18.6 % (19-41); Mean Corp Hgb Conc 29.5 g/dL (32-36); Mean Corpuscular Hgb 25.1 pg (27.0-32.0); Mean Corpuscular Volume 84.9 fL (81-99); Mean Platelet Vol. 9.8 fl (6.2-12.0); Monocyte# 0.55 X10^3/uL; Monocyte% 5.1 % (0-10); NRBC Flagged by Analyzer 0 % (0-5); Neutrophil # 7.72 X10^3/uL (2.7-7.7); Neutrophil % 71.6 % (47-70); Platelet Count 349 K/mm3 (150-450); RBC Distribution Width CV 15.2 % (11.6-14.6); RBC Distribution Width SD 46.6 fl (35.1-43.9); Red Blood Count 4.51 M/mm3 (4.2-5.4); White Blood Count 10.8 K/mm3 (4.4-11.0)
[2020-04-06 12:03] LABS: Anion Gap 1 (5-15); BUN 15 mg/dL (7-18); BUN/Creat Ratio 23.8 RATIO (10-20); Calcium,Total 8.8 mg/dL (8.5-10.1); Chloride 108 mmol/L (98-107); Creatinine, Serum 0.63 mg/dL (0.55-1.02); EST Glomerular Filtration Rate 112 mL/min (>60); Est Glom Filt Rate - Afr Amer 135 mL/min (>60); Estimated Creatinine Clearance 95.76 ml/min; Glucose 93 mg/dL (74-106); Potassium 3.8 mmol/L (3.5-5.1); Sodium Level 139 mmol/L (136-145)
--- NOTE | 2020-04-06 12:05 | ED.DCSUM_ITS ---
- ER Visit Summary Date of Service: 04/06/20 Chief Complaint: Fatigue History of Present Illness: The patient is a 39 F with fatigue that began yesterday. Patient states this feels similar to when she had pneumonia recently. Patient states she has a pinching sensation in her right lower chest and back area. Patient states nothing makes her fatigue better or worse. Patient denies any fevers or chills. Patient denies any nausea or vomiting. Patient denies any shortness of breath or cough. Patient denies any chest pain or palpitations. Patient denies any sick exposures to COVID-19. Physical Examination: Vital signs are stable. Patient is afebrile. Patient is in no acute distress. Oral mucosa is pink and moist. Neck is supple. Trachea is midline. There is no JVD noted. Heart was regular rate and rhythm. Lungs are clear and equal bilaterally. Abdomen is soft. Bowel sounds are normal. There is no tenderness. There is no rebound or guarding noted. Skin is warm dry. Cranial nerves II through XII are intact. There are no focal motor or sensory deficits noted. Extremities are intact. There is no calf tenderness or edema. Test Results: CBC and basic metabolic profile were obtained and were within normal limits. Portable 1 view chest x-ray was obtained. On my interpretation, lung parsons are clear. There is a small right pleural effusion at the lung base. There is normal cardiac silhouette. Bony thorax is normal. There is no acute process noted. Radiologist also interpreted the x-ray and agrees. Emergency Department Course and Treatment: Patient was advised of her findings. Patient was instructed to continue Tylenol and ibuprofen as needed for any fevers, aches, or fatigue. Patient was instructed to drink plenty of fluids. Patient was instructed to follow-up with her primary care physician in 5 to 7 days. Patient understood and was agreeable with the plan. All questions were answered. Disposition: Discharge home Impression: 1. Viral illness This note was generated with [employer] software. It may contain incorrect words, spelling, and punctuation that were not noted in review of the chart prior to signing ED Disposition - Plan for ED Patient: Disposition: Home or Assisted Living Diagnosis: Viral illness Instructions: ED Viral Syndrome Referrals: Isaías Saldana MD [Primary Care Provider] - 5-7 Days
[2020-04-06 13:14] VITALS: BP 121/86; PULSE 77; RESP 16; O2SAT 100
== END 2020-04-06 13:15 | disposition home or self-care (01) ==
PROVIDERS: Emergency Provider Emergency Medicine; PCP Family Medicine
DX: B34.9 Viral infection, unspecified (principal)
CPT/HCPCS: 71045; 80048; 85025; 99283; A4216

== ENCOUNTER 2023-12-13 01:26 | Emergency (ER) | payer MEDICAID, SELFPAY ==
[2023-12-13 01:26] VITALS: BP 131/95; PULSE 105; RESP 16; TEMP 36.9; O2SAT 99; BMI 33.5
--- NOTE | 2023-12-13 01:32 | EDS_ITS ---
HPI History of Present Illness Chief Complaint: Dental Detail of Chief Complaint: Dental pain Informant: patient Narrative Narrative: Patient presents with dental pain right upper teeth and gum swelling. Patient states she noticed yesterday. Patient states that she had a dentist appointment scheduled for 2 weeks from now. Patient used to abuse drugs but has not used in over a year. She denies fevers or chills or sweats. She does not want narcotic pain medicine. She was worried about infection. [facility] Medical History (Updated 12/13/23 @ 01:[address] Eddi Jose, DO) Vaginal delivery Home Medications ?Medication ?Instructions ?Recorded ?Last Taken ?Type clindamycin HCl 300 mg capsule 300 mg PO Q6H #40 CAPSULES 12/13/23 Unknown Rx (Cleocin HCl) naproxen 500 mg tablet (Naprosyn) 500 mg PO BID PRN pain #20 tabs 12/13/23 Unknown Rx Allergy/AdvReac Type Severity Reaction Status Date / Time amoxicillin (Amoxicillin) Allergy Hives Verified 12/13/23 01:30 Penicillins Allergy Swelling Verified 12/13/23 01:30 Social History Smoking Status: Current every day smoker tobacco type: cigarettes ROS ROS ED Review of Systems ROS Unobtainable: other Constitutional Constitutional ED: Reports lethargy; Denies chills, fever(s), sweats or weight loss Eyes Eyes: Denies blurry vision, change in vision or diplopia ENT ENT ED: Reports other Details: Dental pain ; Denies rhinorrhea or sore throat Cardiovascular Cardiovascular: Denies chest pain, orthopnea or racing heartbeat Respiratory/Chest Respiratory/Chest: Denies cough, dyspnea, dyspnea on exertion, orthopnea or sputum Gastrointestinal Gastrointestinal: Denies abdominal pain, diarrhea, nausea or vomiting Genitourinary Genitourinary ED: Denies dysuria, hematuria or urinary frequency Musculoskeletal Musculoskeletal: Denies arthralgias, back pain, myalgias or neck pain Integumentary Denies abscess, Abrasions or rash Neurologic Neurologic: Denies headache(s) or weakness Psychiatric Psychiatric: Denies anxiety, depression or suicidal thoughts Endocrine Endocrinology: Denies polydipsia, polyphagia or polyuria Hematologic/Lymphatic Hematologic/Lymphatic: Denies easy bleeding, easy bruising or lymphadenopathy Allergic/Immunologic Allergic/Immunologic ED: Denies mouth swelling, tongue swelling or urticaria EXAM Physical Exam Const Vital Signs: 12/13/23 01:26 Temperature 98.4 F Temperature Source Oral Pulse Rate 105 H Respiratory Rate 16 Blood Pressure 131/95 H Blood Pressure Mean 107 Pulse Ox 99 Oxygen Delivery Method Room Air Positive well nourished and well developed General Appearance ED: well developed and NAD HEENT Reports TM's clear and moist mucous membranes HEENT Narrative: Dentition-patient has mild diffuse tenderness over the right upper gingiva. She has multiple molars and premolars worn down to the gumline. Slightly tender to palpation. No abscess noted. No facial cellulitis. normocephalic and atraumatic; Negative for trauma or tenderness Tympanic Membrane ED: Yes TM's clear Eyes PERRL and EOMs intact bilaterally General Eye ED: Negative for pale conjunctiva or scleral icterus Neck no lymphadenopathy, supple and no JVD General: Negative for tenderness Chest Wall inspection of chest normal and palpation of chest normal Chest: Negative for tenderness Resp normal respiratory effort and clear to auscultation bilaterally Effort and Inspection: Negative for respiratory distress or pain with movement Auscultation: Negative for rhonchi, wheezes or diminished lung sounds Cardio regular rate, regular rhythm, S1 normal heart sound, S2 normal heart sound and no murmurs Peripheral Pulses: pulses 2+ throughout GI normal to inspection, nondistended, normoactive bowel sounds, soft to palpation, non-tender, non-distended and no masses Back/Spine no CVA tenderness and no thoracic nor lumbar tenderness Extremity normal to inspection General Extremety ED: Negative for edema General Extremity: Negative for edema Neuro oriented x3, CN's II-XII intact bilaterally, no sensory deficits noted and gait normal Sensorium / Orientation: awake, alert, oriented to person, oriented to place and oriented to time Motor Exam: strength 5/5 throughout and strength abnormal Psych mental status grossly normal Skin no rashes or lesions noted and no wounds MDM MDM MDM Narrative Medical decision making narrative: Patient presents with dental pain and gum pain. She has very poor dentition. No definite abscess noted and no facial cellulitis. There is no facial swelling. Patient will be started on clindamycin and will also be given naproxen. Advised to keep her appointment with her dentist. Discharge Plan Triage Chief Complaint: Dental ED Provider: Eddi Jose Dx/Rx/DC Orders Clinical Impression: Pain, dental Instructions: ED Dental Pain Prescriptions: New clindamycin HCl [Cleocin HCl] 300 mg capsule 300 mg PO Q6H Qty: 40 0RF naproxen [Naprosyn] 500 mg tablet 500 mg PO BID PRN (Reason: pain) Qty: 20 0RF Primary Care Provider: Isaías Saldana Referrals: Isaías Saldana MD [Primary Care Provider] - Activity Restrictions/Additional Instructions: Keep your appointment with your dentist Print Language: Sami Disposition Disposition: Home, Self Care
[2023-12-13] MEDS: Clindamycin HCl 150 MG Capsule 300 MG PO (01:40)
[2023-12-13] MEDS: Naproxen 375 MG Tablet PO (01:41)
== END 2023-12-13 01:54 | disposition home or self-care (01) ==
LOC: ED 01:42
PROVIDERS: Emergency Provider Emergency Medicine; PCP Family Medicine; Visit Provider Emergency Medicine
DX: K08.89 Other specified disorders of teeth and supporting structures (principal); F17.210 Nicotine dependence, cigarettes, uncomplicated
CPT/HCPCS: 99283